=== PATIENT | female | born 1935 | race Two or more races ===

== ENCOUNTER → 2023-01-06 | Outpatient (BNV) | payer OTHER, SELFPAY | PROVIDERS: Visit Provider Internal Medicine Hypertension Specialist | DX: N18.6 End stage renal disease (principal) | CPT/HCPCS: 90961 ==

== ENCOUNTER → 2023-02-05 | Outpatient (BNV) | payer OTHER, SELFPAY | PROVIDERS: Visit Provider Internal Medicine Hypertension Specialist | DX: N18.6 End stage renal disease (principal) | CPT/HCPCS: 90961 ==

== ENCOUNTER → 2023-03-08 | Outpatient (BNV) | payer OTHER, SELFPAY | PROVIDERS: Visit Provider Internal Medicine Hypertension Specialist | DX: N18.6 End stage renal disease (principal) | CPT/HCPCS: 90960 ==

== ENCOUNTER 2023-03-29 06:17 | Outpatient (REF) | payer OTHER, SELFPAY ==
[2023-03-29 06:20] LABS: MANUAL DIFF FLAG NO
[2023-03-29 07:00] LABS: Basophils Percent Auto 0.2 % (0-2); Eosinophils Percent Auto 0.2 % (0-4); Hematocrit 28.1 % (37.0-47.0); Hemoglobin 9.1 g/dl (12.0-16.0); Imm Gran Abs Auto 0.05 X10*3/uL (0.00-0.03); Imm Gran Pct Auto 0.4 % (0.0-0.4); Lymphocytes Percent Auto 8.6 % (20-40); Mean Corpuscular HGB Conc 32.4 g/dl (31.0-35.0); Mean Corpuscular Hemoglobin 26.1 pg (27.0-33.0); Mean Corpuscular Volume 80.7 fL (80.0-98.0); Mean Platelet Volume 10.1 fL (9.4-12.3); Monocytes Absolute Auto 1.1 X10*3/uL (0.1-1.2); Monocytes Percent Auto 9.6 % (2-11); Neutrophils Absolute Auto 9.4 x10*3/uL (2.0-8.3); Platelet Count 235 X10*3/uL (160-400); Red Blood Count 3.48 X10*6/uL (4.20-5.50); Red Cell Distribution Width 18.6 % (11.0-16.0); White Blood Count 11.5 X10*3/uL (4.8-10.8)
[2023-03-29 07:27] LABS: Alanine Aminotransferase 12 U/L (0-31); Albumin Level 2.7 g/dL (3.5-5.0); Alkaline Phosphatase 137 U/L (39-117); Anion Gap 13 (12-20); Aspartate Amino Transferase 25 U/L (5-31); Bilirubin Total 0.9 mg/dL (0.0-1.0); Blood Urea Nitrogen 32 mg/dL (9-16); Calcium 8.9 mg/dL (8.4-10.2); Carbon Dioxide 27 mmol/L (22-29); Chloride 95 mmol/L (96-108); Glucose Random 85 mg/dL (60-115); Potassium 4.4 mmol/L (3.3-5.1); Sodium 131 mmol/L (135-145)
[2023-03-29 08:15] LABS: Estimated Glomerular Filt Rate 9
== END 2023-03-29 06:18 | disposition home or self-care (01) ==
LOC: HO.MMNH2L 06:17
PROVIDERS: Visit Provider Family Medicine
DX: J44.9 Chronic obstructive pulmonary disease, unspecified (principal); N18.6 End stage renal disease; E78.5 Hyperlipidemia, unspecified
CPT/HCPCS: 36415; 80053; 85025

== ENCOUNTER 2023-04-05 06:28 | Outpatient (REF) | payer OTHER, SELFPAY ==
[2023-04-05 06:20] LABS: MANUAL DIFF FLAG NO
[2023-04-05 07:10] LABS: Basophils Absolute Auto 0.1 X10*3/uL (0.0-0.2); Basophils Percent Auto 0.6 % (0-2); Eosinophils Absolute Auto 0.1 X10*3/uL (0.0-0.4); Eosinophils Percent Auto 0.7 % (0-4); Hematocrit 30.2 % (37.0-47.0); Hemoglobin 9.3 g/dl (12.0-16.0); Imm Gran Abs Auto 0.07 X10*3/uL (0.00-0.03); Imm Gran Pct Auto 0.7 % (0.0-0.4); Lymphocytes Absolute Auto 0.9 X10*3/uL (1.2-4.9); Lymphocytes Percent Auto 9.3 % (20-40); Mean Corpuscular HGB Conc 30.8 g/dl (31.0-35.0); Mean Corpuscular Hemoglobin 25.8 pg (27.0-33.0); Mean Corpuscular Volume 83.9 fL (80.0-98.0); Mean Platelet Volume 10.8 fL (9.4-12.3); Monocytes Absolute Auto 0.9 X10*3/uL (0.1-1.2); Monocytes Percent Auto 9.5 % (2-11); NRBC Pct Auto 0.2 /100WBC (0.0-0.2); Neutrophils Absolute Auto 7.5 x10*3/uL (2.0-8.3); Neutrophils Percent Auto 79.2 % (45-73); Platelet Count 233 X10*3/uL (160-400); Red Cell Distribution Width 19.9 % (11.0-16.0); White Blood Count 9.5 X10*3/uL (4.8-10.8)
[2023-04-05 07:30] LABS: Alanine Aminotransferase 10 U/L (0-31); Albumin Level 2.5 g/dL (3.5-5.0); Alkaline Phosphatase 124 U/L (39-117); Anion Gap 16 (12-20); Aspartate Amino Transferase 17 U/L (5-31); Bilirubin Total 0.7 mg/dL (0.0-1.0); Blood Urea Nitrogen 24 mg/dL (9-16); Calcium 8.8 mg/dL (8.4-10.2); Carbon Dioxide 26 mmol/L (22-29); Chloride 95 mmol/L (96-108); Estimated Glomerular Filt Rate 10; Glucose Random 63 mg/dL (60-115); Potassium 4.4 mmol/L (3.3-5.1); Sodium 133 mmol/L (135-145); Total Protein 5.6 g/dL (6.5-8.0)
== END 2023-04-05 06:29 | disposition home or self-care (01) ==
LOC: HO.MMNH2L 06:28
PROVIDERS: Visit Provider Family Medicine
DX: J44.9 Chronic obstructive pulmonary disease, unspecified (principal); N18.6 End stage renal disease; E78.5 Hyperlipidemia, unspecified
CPT/HCPCS: 36415; 80053; 85025

== ENCOUNTER → 2023-04-08 | Outpatient (BNV) | payer OTHER, SELFPAY | PROVIDERS: Visit Provider Internal Medicine Hypertension Specialist | DX: N18.6 End stage renal disease (principal) | CPT/HCPCS: 90960 ==

== ENCOUNTER 2023-04-12 06:34 | Outpatient (REF) | payer OTHER, SELFPAY ==
[2023-04-12 06:07] LABS: MANUAL DIFF FLAG NO
[2023-04-12 06:37] LABS: Basophils Absolute Auto 0.1 X10*3/uL (0.0-0.2); Eosinophils Absolute Auto 0.1 X10*3/uL (0.0-0.4); Eosinophils Percent Auto 1.1 % (0-4); Hematocrit 31.6 % (37.0-47.0); Hemoglobin 9.9 g/dl (12.0-16.0); Imm Gran Abs Auto 0.04 X10*3/uL (0.00-0.03); Imm Gran Pct Auto 0.4 % (0.0-0.4); Lymphocytes Absolute Auto 1.2 X10*3/uL (1.2-4.9); Mean Corpuscular HGB Conc 31.3 g/dl (31.0-35.0); Mean Corpuscular Hemoglobin 26.3 pg (27.0-33.0); Mean Platelet Volume 10.5 fL (9.4-12.3); Monocytes Percent Auto 9.6 % (2-11); Neutrophils Absolute Auto 7.6 x10*3/uL (2.0-8.3); Neutrophils Percent Auto 75.9 % (45-73); Platelet Count 150 X10*3/uL (160-400); Red Blood Count 3.76 X10*6/uL (4.20-5.50); Red Cell Distribution Width 20.8 % (11.0-16.0); White Blood Count 10.1 X10*3/uL (4.8-10.8)
[2023-04-12 07:17] LABS: Alanine Aminotransferase 10 U/L (0-31); Albumin Level 2.6 g/dL (3.5-5.0); Alkaline Phosphatase 118 U/L (39-117); Anion Gap 17 (12-20); Aspartate Amino Transferase 19 U/L (5-31); Bilirubin Total 0.6 mg/dL (0.0-1.0); Blood Urea Nitrogen 24 mg/dL (9-16); Calcium 8.8 mg/dL (8.4-10.2); Carbon Dioxide 23 mmol/L (22-29); Chloride 96 mmol/L (96-108); Estimated Glomerular Filt Rate 10; Glucose Random 73 mg/dL (60-115); Potassium 4.5 mmol/L (3.3-5.1); Sodium 131 mmol/L (135-145); Total Protein 5.6 g/dL (6.5-8.0)
== END 2023-04-12 06:35 | disposition home or self-care (01) ==
LOC: HO.MMNH2L 06:34
PROVIDERS: Visit Provider Family Medicine
DX: J44.9 Chronic obstructive pulmonary disease, unspecified (principal); N18.9 Chronic kidney disease, unspecified; E78.5 Hyperlipidemia, unspecified
CPT/HCPCS: 36415; 80053; 85025

== ENCOUNTER 2023-04-19 06:51 | Outpatient (REF) | payer OTHER, SELFPAY ==
[2023-04-19 06:10] LABS: MANUAL DIFF FLAG NO
[2023-04-19 07:19] LABS: Basophils Absolute Auto 0.1 X10*3/uL (0.0-0.2); Basophils Percent Auto 1.2 % (0-2); Eosinophils Absolute Auto 0.1 X10*3/uL (0.0-0.4); Eosinophils Percent Auto 0.9 % (0-4); Hematocrit 32.9 % (37.0-47.0); Hemoglobin 10.3 g/dl (12.0-16.0); Imm Gran Abs Auto 0.03 X10*3/uL (0.00-0.03); Imm Gran Pct Auto 0.4 % (0.0-0.4); Lymphocytes Absolute Auto 1.2 X10*3/uL (1.2-4.9); Lymphocytes Percent Auto 15.9 % (20-40); Mean Corpuscular HGB Conc 31.3 g/dl (31.0-35.0); Mean Corpuscular Hemoglobin 26.4 pg (27.0-33.0); Mean Corpuscular Volume 84.4 fL (80.0-98.0); Mean Platelet Volume 10.9 fL (9.4-12.3); Monocytes Absolute Auto 0.8 X10*3/uL (0.1-1.2); Monocytes Percent Auto 10.4 % (2-11); NRBC Pct Auto 0.3 /100WBC (0.0-0.2); Neutrophils Absolute Auto 5.4 x10*3/uL (2.0-8.3); Neutrophils Percent Auto 71.2 % (45-73); Platelet Count 193 X10*3/uL (160-400); Red Cell Distribution Width 21.1 % (11.0-16.0); White Blood Count 7.6 X10*3/uL (4.8-10.8)
[2023-04-19 07:43] LABS: Alanine Aminotransferase 8 U/L (0-31); Albumin Level 2.8 g/dL (3.5-5.0); Alkaline Phosphatase 101 U/L (39-117); Anion Gap 17 (12-20); Aspartate Amino Transferase 20 U/L (5-31); Bilirubin Total 0.8 mg/dL (0.0-1.0); Blood Urea Nitrogen 18 mg/dL (9-16); Carbon Dioxide 23 mmol/L (22-29); Chloride 98 mmol/L (96-108); Estimated Glomerular Filt Rate 11; Glucose Random 70 mg/dL (60-115); Potassium 4.6 mmol/L (3.3-5.1); Sodium 133 mmol/L (135-145); Total Protein 5.8 g/dL (6.5-8.0)
== END 2023-04-19 06:52 | disposition home or self-care (01) ==
LOC: HO.MMNH2L 06:51
PROVIDERS: Visit Provider Family Medicine
DX: J44.9 Chronic obstructive pulmonary disease, unspecified (principal); N18.6 End stage renal disease; E78.5 Hyperlipidemia, unspecified
CPT/HCPCS: 36415; 80053; 85025

== ENCOUNTER → 2023-05-07 | Outpatient (BNV) | payer OTHER, SELFPAY | PROVIDERS: Visit Provider Internal Medicine Hypertension Specialist | DX: N18.6 End stage renal disease (principal) | CPT/HCPCS: 90961 ==

== ENCOUNTER 2023-06-02 05:48 | Outpatient (REF) | payer OTHER, SELFPAY ==
[2023-06-02 05:50] LABS: MANUAL DIFF FLAG NO
[2023-06-02 06:20] LABS: Basophils Absolute Auto 0.1 X10*3/uL (0.0-0.2); Eosinophils Absolute Auto 0.1 X10*3/uL (0.0-0.4); Hematocrit 26.8 % (37.0-47.0); Imm Gran Abs Auto 0.04 X10*3/uL (0.00-0.03); Imm Gran Pct Auto 0.4 % (0.0-0.4); Lymphocytes Absolute Auto 1.4 X10*3/uL (1.2-4.9); Lymphocytes Percent Auto 15.2 % (20-40); Mean Corpuscular HGB Conc 33.6 g/dl (31.0-35.0); Mean Corpuscular Hemoglobin 29.5 pg (27.0-33.0); Mean Corpuscular Volume 87.9 fL (80.0-98.0); Mean Platelet Volume 10.8 fL (9.4-12.3); Monocytes Absolute Auto 0.8 X10*3/uL (0.1-1.2); Monocytes Percent Auto 9.2 % (2-11); Neutrophils Absolute Auto 6.7 x10*3/uL (2.0-8.3); Neutrophils Percent Auto 73.2 % (45-73); Platelet Count 214 X10*3/uL (160-400); Red Blood Count 3.05 X10*6/uL (4.20-5.50); Red Cell Distribution Width 20.5 % (11.0-16.0); White Blood Count 9.1 X10*3/uL (4.8-10.8)
[2023-06-02 06:41] LABS: Alanine Aminotransferase 7 U/L (0-31); Albumin Level 2.5 g/dL (3.5-5.0); Alkaline Phosphatase 91 U/L (39-117); Anion Gap 13 (12-20); Aspartate Amino Transferase 18 U/L (5-31); Bilirubin Total 0.7 mg/dL (0.0-1.0); Blood Urea Nitrogen 12 mg/dL (9-16); Calcium 8.3 mg/dL (8.4-10.2); Carbon Dioxide 27 mmol/L (22-29); Chloride 98 mmol/L (96-108); Estimated Glomerular Filt Rate 15; Glucose Random 70 mg/dL (60-115); Potassium 3.2 mmol/L (3.3-5.1); Sodium 135 mmol/L (135-145); Total Protein 5.4 g/dL (6.5-8.0)
== END 2023-06-02 05:49 | disposition home or self-care (01) ==
LOC: HO.MMNH2L 05:48
PROVIDERS: Visit Provider Family Medicine
DX: N18.6 End stage renal disease (principal)
CPT/HCPCS: 36415; 80053; 85025

== ENCOUNTER 2023-06-07 06:51 | Outpatient (REF) | payer OTHER, SELFPAY ==
[2023-06-07 05:57] LABS: MANUAL DIFF FLAG NO
[2023-06-07 06:16] LABS: Basophils Absolute Auto 0.1 X10*3/uL (0.0-0.2); Basophils Percent Auto 0.7 % (0-2); Eosinophils Percent Auto 0.4 % (0-4); Hematocrit 30.1 % (37.0-47.0); Hemoglobin 9.9 g/dl (12.0-16.0); Imm Gran Abs Auto 0.04 X10*3/uL (0.00-0.03); Imm Gran Pct Auto 0.4 % (0.0-0.4); Lymphocytes Percent Auto 22.3 % (20-40); Mean Corpuscular HGB Conc 32.9 g/dl (31.0-35.0); Mean Corpuscular Hemoglobin 28.9 pg (27.0-33.0); Mean Corpuscular Volume 87.8 fL (80.0-98.0); Mean Platelet Volume 12.2 fL (9.4-12.3); Monocytes Absolute Auto 1.1 X10*3/uL (0.1-1.2); Monocytes Percent Auto 11.6 % (2-11); NRBC Pct Auto 0.4 /100WBC (0.0-0.2); Neutrophils Absolute Auto 5.9 x10*3/uL (2.0-8.3); Neutrophils Percent Auto 64.6 % (45-73); Platelet Count 141 X10*3/uL (160-400); Red Blood Count 3.43 X10*6/uL (4.20-5.50); Red Cell Distribution Width 20.8 % (11.0-16.0); White Blood Count 9.1 X10*3/uL (4.8-10.8)
[2023-06-07 06:48] LABS: Alanine Aminotransferase 9 U/L (0-31); Albumin Level 2.5 g/dL (3.5-5.0); Alkaline Phosphatase 88 U/L (39-117); Anion Gap 15 (12-20); Aspartate Amino Transferase 27 U/L (5-31); Bilirubin Total 0.7 mg/dL (0.0-1.0); Blood Urea Nitrogen 21 mg/dL (9-16); Calcium 9.2 mg/dL (8.4-10.2); Carbon Dioxide 27 mmol/L (22-29); Chloride 104 mmol/L (96-108); Glucose Random 95 mg/dL (60-115); Potassium 3.9 mmol/L (3.3-5.1); Sodium 142 mmol/L (135-145); Total Protein 5.7 g/dL (6.5-8.0)
[2023-06-07 07:35] LABS: Estimated Glomerular Filt Rate 8
== END 2023-06-07 06:52 | disposition home or self-care (01) ==
LOC: HO.MMNH2L 06:51
PROVIDERS: Visit Provider Family Medicine
DX: N18.6 End stage renal disease (principal)
CPT/HCPCS: 36415; 80053; 85025

== ENCOUNTER → 2023-06-07 | Outpatient (BNV) | payer OTHER, SELFPAY | PROVIDERS: Visit Provider Internal Medicine Hypertension Specialist | DX: N18.6 End stage renal disease (principal) | CPT/HCPCS: 90961 ==

== ENCOUNTER 2023-06-10 12:10 | Inpatient (IN) | payer OTHER, SELFPAY ==
[2023-06-10] VITALS (8 sets, daily range): BP systolic 90–137; BP diastolic 41–56; PULSE 59–80; RESP 14–19; TEMP 36.4–36.5; O2SAT 93–100; BMI 24.7
--- NOTE | ~2023-06-10 | XR_ITS ---
EXAMINATION: XR CHEST CLINICAL INFORMATION: Weakness COMPARISON: None available. TECHNIQUE: AP upright portable view of the chest was obtained. 12:44 PM FINDINGS: Tubular structure projects over the right side of the hemithorax. There is a pacemaker/AICD pack projected over the left hemithorax. Lung volumes are low. The patient's chin partially obscures the medial upper apices. The right lung is clear. No right pleural effusion. There is increased opacity in the mid and lower left hemithorax which could be due to pleural effusion and/or elevation of the left hemidiaphragm. This obscures the left side of the cardiac silhouette. Calcification of the thoracic arch is indicative of atherosclerotic disease. There is elevation of the humeral heads with respect to the glenoid fossae consistent with chronic rotator cuff disease. Bilateral impingement syndrome of the shoulders is also seen. XR/XR chest 1V IMPRESSION: 1. Low lung volumes. 2. Increased opacity in the mid and lower left hemithorax which could be due to pleural effusion and/or elevation of the left hemidiaphragm.
--- NOTE | 2023-06-10 12:23 | ECG_ITS ---
Test Reason : WEAKNESS Blood Pressure : / mmHG Vent. Rate : 061 BPM Atrial Rate : 070 BPM P-R Int : 000 ms QRS Dur : 166 ms QT Int : 496 ms P-R-T Axes : 000 -55 132 degrees QTc Int : 499 ms Sinus rhythm with complete heart block and Ventricular-paced rhythm with occasional Premature ventricular complexes Abnormal ECG No previous ECGs available Referred By: Kenzie Boyer Electronically Signed By:GABBY MEJIA MD
--- NOTE | 2023-06-10 12:37 | ED_ITS ---
HPI - General Adult General Chief complaint: General Medical Stated complaint: LOW BP 82/42 FROM [facility] PER EMS Time Seen by Provider: 06/10/23 12:17 Source: patient, EMS and old records reviewed Mode of arrival: EMS Limitations: altered mental status (dementia) History of Present Illness HPI narrative: 87 yo female with PMH of ESRD permacath T Th S, anemia of CKD, TIA, PAF on eliquis, NSTEMI, PVD, vascular dementia, HTN, HLD, anxiety, depression, JOSE, just completed cefepime on 06/07 for UTI, GERD here with c/o having low BP at HD today 82/42 it looks like per notes her dry weight is down 1.1kg. The patient has no complaints she appears clinically dry on exam. She is DNR/DNI. EMS BP was 95 systolic. No HD was done today due to hypotension. Family is here and notes she has been at [facility] so they did not see her earlier. MD complaint: hypotension Onset (ago): hour(s) (1) Radiation: non-radiation Severity: mild Relieving factors: none Exacerbating factors: none Associated symptoms: denies other symptoms Treatments prior to arrival: none Related Data Home Medications ?Medication ?Instructions ?Recorded ?Confirmed albuterol sulfate 2.5 mg/3 mL 2.5 mg inhalation Q6H PRN 06/10/23 06/10/23 (0.083 %) solution for nebulization Shortness Of Breath albuterol sulfate 90 mcg/actuation 2 puff inhalation Q4H PRN 06/10/23 06/10/23 aerosol inhaler Shortness Of Breath apixaban 2.5 mg tablet (Eliquis) 2.5 mg PO BID 06/10/23 06/10/23 aspirin 81 mg capsule 81 mg PO DAILY 06/10/23 06/10/23 atorvastatin 40 mg tablet 40 mg PO DAILY 06/10/23 06/10/23 buspirone 5 mg tablet 10 mg PO BID 06/10/23 06/10/23 carvedilol 3.125 mg tablet 3.125 mg PO BID 06/10/23 06/10/23 cholecalciferol (vitamin D3) 25 25 mcg PO DAILY 06/10/23 06/10/23 mcg (1,000 unit) tablet hydralazine 25 mg tablet 25 mg PO BID 06/10/23 06/10/23 melatonin 3 mg tablet 3 mg PO BEDTIME 06/10/23 06/10/23 multivitamin 1 tab PO DAILY 06/10/23 06/10/23 nystatin 100,000 unit/gram topical 1 appl topical DAILY 06/10/23 06/10/23 powder oxybutynin chloride 5 mg tablet 5 mg PO BID 06/10/23 06/10/23 pantoprazole 20 mg tablet,delayed 20 mg PO BID@0630,1630 06/10/23 06/10/23 release polyethylene glycol 3350 17 gram 17 g PO DAILY PRN Constipation 06/10/23 06/10/23 oral powder packet (Miralax) sennosides 8.6 mg tablet (senna) 8.6 mg PO BID PRN Constipation 06/10/23 06/10/23 Allergies Allergy/AdvReac Type Severity Reaction Status Date / Time lisinopril Allergy Unknown Verified 06/10/23 12:23 Review of Systems 2 Review of Systems: ROS unable to be obtained due to dementia [facility] Past Medical History Source: old records reviewed Medical History Hyperlipidemia Anemia in chronic kidney disease NSTEMI (non-ST elevated myocardial infarction) CHF (congestive heart failure) PAF (paroxysmal atrial fibrillation) TIA (transient ischemic attack) Depression JOSE (obstructive sleep apnea) HTN (hypertension) Vascular dementia ESRD (end stage renal disease) Social History Social History Patient Tobacco Use Status: Tobacco use Unknown Smoked in Last 30 Days: No Use of substances other than those prescribed or required for medical reasons: No Advance Directives: No Advance Directives Information Provided: No Physical Exam ED Vital Signs: Vital Signs - 24 hr 06/10/23 12:18 06/10/23 13:05 06/10/23 13:08 Temperature 97.5 F Pulse Rate 63 62 60 Respiratory Rate 14 19 16 Blood Pressure 104/52 L 97/49 L 106/54 L Pulse Oximetry 94 95 93 Oxygen Delivery Method Room Air Room Air Room Air Oxygen Flow Rate 06/10/23 14:05 06/10/23 16:26 Temperature 97.7 F Pulse Rate 64 62 Respiratory Rate 18 16 Blood Pressure 107/41 L 111/49 L Pulse Oximetry 95 100 Oxygen Delivery Method Room Air Nasal Cannula Oxygen Flow Rate 2 BMI result Body Mass Index 24.7 Appearance: Alert. Oriented to self. No acute distress. Eyes: Pupils equal, round and reactive to light. ENT: Pharynx ndry MM Neck: Normal inspection. Neck supple. CVS: Normal heart rate and rhythm. Pulses normal. Chest: permacath site is c/d/i PPM noted Respiratory: No respiratory distress. Breath sounds diminished L base Abdomen: Soft and nontender. Skin: Skin warm and dry. pale skin color. poor skin turgor. Extremities: No lower extremity edema. No calf ttp Neuro: Oriented X 1. diffusely weak but no obvious focal deficits. Course Course Course Narrative: daughter is aware of likely NSTEMI does not want anything beyond medical management no PCI no surgeries. already on eliquis will hold heparin given CKD, anemia and bleeding risks Reevaluation(s) Reevaluation #1: message sent to Dr. Mar from caser up Medications Administered Generic Name Dose Route Start Last Admin Trade Name Freq PRN Reason Stop Dose Admin Sodium Chloride 1,000 mls @ 100 mls/hr 06/10/23 15:45 06/10/23 16:57 Ns IVCONT 06/11/23 11:44 100 mls/hr .Q10H IRIS Administration Discontinued Medications Generic Name Dose Route Start Last Admin Trade Name Freq PRN Reason Stop Dose Admin Sodium Chloride 500 mls @ 500 mls/hr 06/10/23 12:24 06/10/23 14:00 Ns IV 06/10/23 13:23 Infused .Q1H ONE Infusion Albumin Human 100 mls @ 133.333 mls/hr 06/10/23 12:30 06/10/23 16:50 Kedbumin 25 % IV 06/10/23 14:14 Infused Q1H IRIS Infusion Cefepime HCl 1 gm/ Sodium 50 mls @ 100 mls/hr 06/10/23 12:31 06/10/23 14:50 Chloride IV 06/10/23 13:00 Infused ONCE ONE Infusion Calcium Gluconate 2 gm in 100 mls @ 50 mls/hr 06/10/23 13:02 06/10/23 16:51 Calcium Gluconate IV 06/10/23 15:01 50 mls/hr ONCE ONE Administration Procedures Procedure Narrative Procedure Narrative: bedside limited cardiac echo - subxiphoid, apical and parasternal views small effusion but no tamponade physiology noted, overall poor squeeze noted on exam Medical Decision Making Medical Decision Making MDM Narrative: 87 yo female with PMH of ESRD permacath T Th S, anemia of CKD, TIA, PAF on eliquis, NSTEMI, PVD, vascular dementia, HTN, HLD, anxiety, depression, JOSE, just completed cefepime on 06/07 for UTI, GERD here with low BPs at HD and decrease in dry weight at this time clinically she looks dry will start on gentle fluids and albumin given concern for volume overload - will start on 500cc bolus, albumin dose - labs and empiric cefepime x 1 dose until we can get further history and workup. Will obtain bedside ECHO for pericardial effusion. She is DNR/DNI. Looks as if she has PPM as well I did not see that in the records. Differential Diagnosis Differential Diagnoses: The differential diagnosis associated with the presentation includes UTI, pneumonia, dehydration, anemia Admission/Observation Consideration of admission/observation: Escalation of care including admission/observation considered Consult Healthcare Provider Management of the patient was discussed with: Hospitalist (will admit) and [employer] (nephrology ) Lab Data MDM Lab Attestation statement: I reviewed the patient's lab results. trop is elevated patient denies pain EKG no STEMI no priors 06/10/23 12:53 06/10/23 12:38 Labs: Lab Results 06/10/23 06/10/23 06/10/23 Range/Units 12:38 12:53 13:09 WBC 12.1 H (4.8-10.8) X10*3/uL RBC 4.01 L (4.20-5.50) X10*6/uL Hgb 11.4 L (12.0-16.0) g/dl Hct 35.9 L (37.0-47.0) % MCV 89.5 (80.0-98.0) fL MCH 28.4 (27.0-33.0) pg MCHC 31.8 (31.0-35.0) g/dl RDW 20.9 H (11.0-16.0) % Plt Count 163 (160-400) X10*3/uL MPV 11.6 (9.4-12.3) fL Immature Gran % (Auto) 0.5 H (0.0-0.4) % Neut % (Auto) 81.0 H (45-73) % Lymph % (Auto) 10.2 L (20-40) % [place] % (Auto) 7.3 (2-11) % Eos % (Auto) 0.6 (0-4) % Baso % (Auto) 0.4 (0-2) % Lymph # (Auto) 1.2 (1.2-4.9) X10*3/uL [place] # (Auto) 0.9 (0.1-1.2) X10*3/uL Eos # (Auto) 0.1 (0.0-0.4) X10*3/uL Baso # (Auto) 0.1 (0.0-0.2) X10*3/uL Abs Immat Gran (auto) 0.06 H (0.00-0.03) X10*3/uL Absolute Neuts (auto) 9.8 H (2.0-8.3) x10*3/uL Absolute Nucleated RBC 0.160 H (0.0-0.012) X10*3/uL Nucleated RBC % (auto) 1.3 H (0.0-0.2) /100WBC PT 15.0 H (11.1-13.3) SEC INR 1.2 H (0.9-1.1) Sodium 137 (135-145) mmol/L Potassium 4.4 (3.3-5.1) mmol/L Chloride 98 (96-108) mmol/L Carbon Dioxide 28 (22-29) mmol/L Anion Gap 15 (12-20) BUN 29 H (9-16) mg/dL Creatinine 5.83 H* (0.5-1.4) mg/dL Estim Creat Clear Calc 5.4 Estimated GFR 7 Random Glucose 100 (60-115) mg/dL Lactic Acid 2.9 H* (0.5-2.0) mmol/L Lactic Acid F/U @ 2Hr (0.5-2.0) mmol/L Calcium 10.2 D (8.4-10.2) mg/dL Magnesium 2.0 (1.6-2.6) mg/dL Total Bilirubin 0.9 (0.0-1.0) mg/dL Direct Bilirubin 0.4 (0.0-0.5) mg/dL AST 36 H (5-31) U/L ALT 15 (0-31) U/L Alkaline Phosphatase 104 (39-117) U/L Troponin I High Sens 958.4 H* (<3.5-17.0) ng/L B-Natriuretic Peptide 1786 H (<100) pg/mL Total Protein 7.0 (6.5-8.0) g/dL Albumin 2.9 L (3.5-5.0) g/dL Lipase 17 (8-78) U/L Procalcitonin 0.69 ng/mL Influenza Type A (PCR) NEGATIVE (Negative) Influenza Type B (PCR) NEGATIVE (Negative) RSV RNA Qual (PCR) NEGATIVE (Negative) SARS-CoV-2 RNA (RT-PCR) NEGATIVE (Negative) Blood Type A Positive Antibody Screen POSITIVE Antibody Identification Anti-E VELIA, Polyspecific NEGATIVE Positive VELIA Work-up TNP 06/10/23 Range/Units 15:16 WBC (4.8-10.8) X10*3/uL RBC (4.20-5.50) X10*6/uL Hgb (12.0-16.0) g/dl Hct (37.0-47.0) % MCV (80.0-98.0) fL MCH (27.0-33.0) pg MCHC (31.0-35.0) g/dl RDW (11.0-16.0) % Plt Count (160-400) X10*3/uL MPV (9.4-12.3) fL Immature Gran % (Auto) (0.0-0.4) % Neut % (Auto) (45-73) % Lymph % (Auto) (20-40) % [place] % (Auto) (2-11) % Eos % (Auto) (0-4) % Baso % (Auto) (0-2) % Lymph # (Auto) (1.2-4.9) X10*3/uL [place] # (Auto) (0.1-1.2) X10*3/uL Eos # (Auto) (0.0-0.4) X10*3/uL Baso # (Auto) (0.0-0.2) X10*3/uL Abs Immat Gran (auto) (0.00-0.03) X10*3/uL Absolute Neuts (auto) (2.0-8.3) x10*3/uL Absolute Nucleated RBC (0.0-0.012) X10*3/uL Nucleated RBC % (auto) (0.0-0.2) /100WBC PT (11.1-13.3) SEC INR (0.9-1.1) Sodium (135-145) mmol/L Potassium (3.3-5.1) mmol/L Chloride (96-108) mmol/L Carbon Dioxide (22-29) mmol/L Anion Gap (12-20) BUN (9-16) mg/dL Creatinine (0.5-1.4) mg/dL Estim Creat Clear Calc Estimated GFR Random Glucose (60-115) mg/dL Lactic Acid (0.5-2.0) mmol/L Lactic Acid F/U @ 2Hr 3.1 H* (0.5-2.0) mmol/L Calcium (8.4-10.2) mg/dL Magnesium (1.6-2.6) mg/dL Total Bilirubin (0.0-1.0) mg/dL Direct Bilirubin (0.0-0.5) mg/dL AST (5-31) U/L ALT (0-31) U/L Alkaline Phosphatase (39-117) U/L Troponin I High Sens 768.4 H* (<3.5-17.0) ng/L B-Natriuretic Peptide (<100) pg/mL Total Protein (6.5-8.0) g/dL Albumin (3.5-5.0) g/dL Lipase (8-78) U/L Procalcitonin ng/mL Influenza Type A (PCR) (Negative) Influenza Type B (PCR) (Negative) RSV RNA Qual (PCR) (Negative) SARS-CoV-2 RNA (RT-PCR) (Negative) Blood Type Antibody Screen Antibody Identification VELIA, Polyspecific Positive VELIA Work-up Independent Interpretation I performed an independent interpretation of an: EKG, Plain X-Ray and Ultrasound Interpretation: Rate: 60 Rhythm: paced with PVCs [place]: left wide QRS complex ST T wave : no ALENA, inverted t waves in I aVL V2 qTC: 499 prior studies: none available The study has been interpreted contemporaneously by me. . Radiology Impression Discussion of test interpretation with radiology: I have reviewed the radiologist's reading. Independent Historian Clinical information obtained from an independent historian. History obtained from or confirmed by: EMS and Other External Record Review External record reviewed: Outpatient record Critical Care Time Critical Care Time Critical Care Time: Yes Total Critical Care Time: 60 Attestation: family discussion, review of records, medical consult, admission. I attest to this time spent taking care of the patient Discharge Plan Discharge Clinical Impression: Acute hypotension, Non-ST elevation [place] (NSTEMI) Elevated WBC count Qualifiers: Leukocytosis type: unspecified Qualified Code(s): D72.829 - Elevated white blood cell count, unspecified Patient Disposition: Admitted As Inpatient Sepsis Bolus Exclusion Sepsis Bolus Exclusion CHF/Renal Failure This patient met severe sepsis criteria due to the following condition(s):: H ypotension In my clinical judgement the administration of 30 ml/kg of crystalloid would be detrimental to this patient due to the patient's following conditions:: Stage III or IV Chronic Kidney Disease (GFR<30) and Concern for fluid overload Replace the 30 mls/kg with (Zero amount not acceptable and all fluids for severe sepsis must be given at GREATER than 125 mls/hr) Crystalloids amount given in mls: (rate must be at least 150cc/hr): 500 Colloids amount given in mls:: 200
[2023-06-10] MEDS: 0.9 % Sodium Chloride 500 ML IV (12:59)
[2023-06-10 13:00] LABS: MANUAL DIFF FLAG NO
[2023-06-10 13:01] LABS: Basophils Absolute Auto 0.1 X10*3/uL (0.0-0.2); Basophils Percent Auto 0.4 % (0-2); Eosinophils Absolute Auto 0.1 X10*3/uL (0.0-0.4); Eosinophils Percent Auto 0.6 % (0-4); Hematocrit 35.9 % (37.0-47.0); Hemoglobin 11.4 g/dl (12.0-16.0); Imm Gran Abs Auto 0.06 X10*3/uL (0.00-0.03); Imm Gran Pct Auto 0.5 % (0.0-0.4); Lymphocytes Absolute Auto 1.2 X10*3/uL (1.2-4.9); Lymphocytes Percent Auto 10.2 % (20-40); Mean Corpuscular HGB Conc 31.8 g/dl (31.0-35.0); Mean Corpuscular Hemoglobin 28.4 pg (27.0-33.0); Mean Corpuscular Volume 89.5 fL (80.0-98.0); Mean Platelet Volume 11.6 fL (9.4-12.3); Monocytes Absolute Auto 0.9 X10*3/uL (0.1-1.2); Monocytes Percent Auto 7.3 % (2-11); Neutrophils Absolute Auto 9.8 x10*3/uL (2.0-8.3); Platelet Count 163 X10*3/uL (160-400); Red Blood Count 4.01 X10*6/uL (4.20-5.50); Red Cell Distribution Width 20.9 % (11.0-16.0); White Blood Count 12.1 X10*3/uL (4.8-10.8)
[2023-06-10 13:02] LABS: NRBC Pct Auto 1.3 /100WBC (0.0-0.2)
[2023-06-10 13:08] LABS: INTERNATIONAL NORM RATIO 1.2 (0.9-1.1)
[2023-06-10 13:09] LABS: Troponin-I High Sensitivity 958.4 ng/L (<3.5-17.0)
[2023-06-10 13:10] LABS: Alanine Aminotransferase 15 U/L (0-31); Albumin Level 2.9 g/dL (3.5-5.0); Alkaline Phosphatase 104 U/L (39-117); Anion Gap 15 (12-20); Aspartate Amino Transferase 36 U/L (5-31); Bilirubin Direct 0.4 mg/dL (0.0-0.5); Bilirubin Total 0.9 mg/dL (0.0-1.0); Blood Urea Nitrogen 29 mg/dL (9-16); Calcium 10.2 mg/dL (8.4-10.2); Carbon Dioxide 28 mmol/L (22-29); Chloride 98 mmol/L (96-108); Creatinine Clr Calc Pharmacy 5.4; Estimated Glomerular Filt Rate 7; Glucose Random 100 mg/dL (60-115); Lipase 17 U/L (8-78); Potassium 4.4 mmol/L (3.3-5.1); Sodium 137 mmol/L (135-145)
[2023-06-10 13:21] LABS: Procalcitonin 0.69 ng/mL
[2023-06-10 13:28] LABS: Lactic Acid 2.9 mmol/L (0.5-2.0)
[2023-06-10 13:48] LABS: Influenza A PCR NEGATIVE (Negative); Influenza B PCR NEGATIVE (Negative); Resp Syncy Virus RNA Qual PCR NEGATIVE (Negative); SARS COV2 PCR INHOUSE NEGATIVE (Negative)
[2023-06-10] MEDS: cefEPime HCl 1 GM in 0.9 % Sodium Chloride 50 ML IV (14:14)
[2023-06-10 14:21] LABS: B Type Natriuretic Peptide 1786 pg/mL (<100)
[2023-06-10] MEDS: Albumin Human 25 % 100 ML 133.33 ML IV ×2 (14:47→15:58)
[2023-06-10 14:58] LABS: Reflex Lactate? Lactic Acid Added
[2023-06-10 15:38] LABS: ~Lactic Acid-LAB USE ONLY 3.1 mmol/L (0.5-2.0)
[2023-06-10 15:48] LABS: Troponin-I High Sensitivity 768.4 ng/L (<3.5-17.0)
--- NOTE | 2023-06-10 16:46 | PHA.MEDREC ---
Pharmacy Consult ? Medication Reconciliation Pharmacy has completed the medication reconciliation. Patient from [facility] with med list. Per RN, cefepime is administer at diaylsis center. Per diaylsis paper work cefepime stopped on 06/08/23, dose was 2g on tuth and 3g on Sa. Lucy Yoo, MaximusD
[2023-06-10] MEDS: Calcium Gluconate/NaCl,Iso-Osm 2 GM/100 ML PLAST..BAG IV (16:51)
--- NOTE | 2023-06-10 16:52 | P.HPHOSP_ITS ---
History of Present Illness Date of Service: 06/10/23 Chief Complaint: Hypotensive event An 87 years old lady with PMH of 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 The patient denies any complaints, chest pain, palpitations, SOB, nausea, vomiting, diarrhea or urinary symptoms. In ED she was found to have elevated lactic acid and Troponin with no changes on EKG to suggest ACS. Admitted for close monitoring. Review of Systems 2 Review of Systems: Yes all other systems are reviewed and are negative PENDING SALE TO [facility] Medical History Hyperlipidemia Anemia in chronic kidney disease NSTEMI (non-ST elevated myocardial infarction) CHF (congestive heart failure) PAF (paroxysmal atrial fibrillation) TIA (transient ischemic attack) Depression JOSE (obstructive sleep apnea) HTN (hypertension) Vascular dementia ESRD (end stage renal disease) Social History Patient Tobacco Use Status: Tobacco use Unknown Smoked in Last 30 Days: No Use of substances other than those prescribed or required for medical reasons: No Advance Directives: No Advance Directives Information Provided: No Meds Allergies Allergy/AdvReac Type Severity Reaction Status Date / Time lisinopril Allergy Unknown Verified 06/10/23 12:23 Active Medications: Current Medications Sodium Chloride (Ns) 1,000 mls @ 100 mls/hr IVCONT .Q10H IRIS Stop: 06/11/23 11:44 Home Medications ?Medication ?Instructions ?Recorded ?Confirmed ?Last Taken ?Type albuterol sulfate 2.5 mg/3 mL 2.5 mg inhalation Q6H PRN 06/10/23 06/10/23 Unknown History (0.083 %) solution for nebulization Shortness Of Breath albuterol sulfate 90 mcg/actuation 2 puff inhalation Q4H PRN 06/10/23 06/10/23 Unknown History aerosol inhaler Shortness Of Breath apixaban 2.5 mg tablet (Eliquis) 2.5 mg PO BID 06/10/23 06/10/23 Unknown History aspirin 81 mg capsule 81 mg PO DAILY 06/10/23 06/10/23 Unknown History atorvastatin 40 mg tablet 40 mg PO DAILY 06/10/23 06/10/23 Unknown History buspirone 5 mg tablet 10 mg PO BID 06/10/23 06/10/23 Unknown History carvedilol 3.125 mg tablet 3.125 mg PO BID 06/10/23 06/10/23 Unknown History cefepime 1 gram solution for 1 g IM TUTHSA@0900 06/10/23 Unknown History injection cholecalciferol (vitamin D3) 25 25 mcg PO DAILY 06/10/23 06/10/23 Unknown History mcg (1,000 unit) tablet hydralazine 25 mg tablet 25 mg PO BID 06/10/23 06/10/23 Unknown History melatonin 3 mg tablet 3 mg PO BEDTIME 06/10/23 06/10/23 Unknown History multivitamin 1 tab PO DAILY 06/10/23 06/10/23 Unknown History nystatin 100,000 unit/gram topical 1 appl topical DAILY 06/10/23 06/10/23 Unknown History powder oxybutynin chloride 5 mg tablet 5 mg PO BID 06/10/23 06/10/23 Unknown History pantoprazole 20 mg tablet,delayed 20 mg PO BID@0630,1630 06/10/23 06/10/23 Unknown History release polyethylene glycol 3350 17 gram 17 g PO DAILY PRN Constipation 06/10/23 06/10/23 Unknown History oral powder packet (Miralax) sennosides 8.6 mg tablet (senna) 8.6 mg PO BID PRN Constipation 06/10/23 06/10/23 Unknown History Physical Exam 2 Vital Signs and Narrative: Vital Signs: Last Vital Signs Temp 97.7 F 06/10/23 16:26 Pulse 62 06/10/23 16:26 Resp 16 06/10/23 16:26 BP 111/49 L 06/10/23 16:26 Pulse Ox 100 06/10/23 16:26 O2 Del Method Nasal Cannula 06/10/23 16:26 O2 Flow Rate 2 06/10/23 16:26 BMI result Body Mass Index 24.7 Const: Other: Constitutional : Awake, interactive, not in distress Neck : Normal inspection, Supple Cardiovascular : RRR, no JVP, no lower extremity edema Respiratory : good bilateral air entry, no crackles, wheezes or rhonchi Gastrointestinal: soft, lax, Normal bowel sounds, Non tender Skin : Warm, Dry, permacath in place and clean Neurological : Alert & oriented to self , No focal deficit Results Labs 06/10/23 12:53 06/10/23 12:38 Labs: Laboratory Results - last 24 hr 06/10/23 06/10/23 06/10/23 12:38 12:53 13:09 MCV 89.5 MCH 28.4 MCHC 31.8 RDW 20.9 H Plt Count 163 MPV 11.6 Immature Gran % (Auto) 0.5 H Neut % (Auto) 81.0 H Lymph % (Auto) 10.2 L [place] % (Auto) 7.3 Eos % (Auto) 0.6 Baso % (Auto) 0.4 Lymph # (Auto) 1.2 [place] # (Auto) 0.9 Eos # (Auto) 0.1 Baso # (Auto) 0.1 Abs Immat Gran (auto) 0.06 H Absolute Neuts (auto) 9.8 H Absolute Nucleated RBC 0.160 H Nucleated RBC % (auto) 1.3 H PT 15.0 H INR 1.2 H Anion Gap 15 Estim Creat Clear Calc 5.4 Estimated GFR 7 Random Glucose 100 Lactic Acid 2.9 H* Lactic Acid F/U @ 2Hr Calcium 10.2 D Magnesium 2.0 Total Bilirubin 0.9 Direct Bilirubin 0.4 AST 36 H ALT 15 Alkaline Phosphatase 104 Troponin I High Sens 958.4 H* B-Natriuretic Peptide 1786 H Total Protein 7.0 Albumin 2.9 L Lipase 17 Procalcitonin 0.69 Influenza Type A (PCR) NEGATIVE Influenza Type B (PCR) NEGATIVE RSV RNA Qual (PCR) NEGATIVE SARS-CoV-2 RNA (RT-PCR) NEGATIVE Blood Type A Positive Antibody Screen POSITIVE Antibody Identification Anti-E VELIA, Polyspecific NEGATIVE Positive VELIA Work-up TNP 06/10/23 15:16 MCV MCH MCHC RDW Plt Count MPV Immature Gran % (Auto) Neut % (Auto) Lymph % (Auto) [place] % (Auto) Eos % (Auto) Baso % (Auto) Lymph # (Auto) [place] # (Auto) Eos # (Auto) Baso # (Auto) Abs Immat Gran (auto) Absolute Neuts (auto) Absolute Nucleated RBC Nucleated RBC % (auto) PT INR Anion Gap Estim Creat Clear Calc Estimated GFR Random Glucose Lactic Acid Lactic Acid F/U @ 2Hr 3.1 H* Calcium Magnesium Total Bilirubin Direct Bilirubin AST ALT Alkaline Phosphatase Troponin I High Sens 768.4 H* B-Natriuretic Peptide Total Protein Albumin Lipase Procalcitonin Influenza Type A (PCR) Influenza Type B (PCR) RSV RNA Qual (PCR) SARS-CoV-2 RNA (RT-PCR) Blood Type Antibody Screen Antibody Identification VELIA, Polyspecific Positive VELIA Work-up Imaging Radiologist's Impressions: Impressions Chest X-Ray 06/10/23 12:40 IMPRESSION: 1. Low lung volumes. 2. Increased opacity in the mid and lower left hemithorax which could be due to pleural effusion and/or elevation of the left hemidiaphragm. Assessment and Plan (1) Elevated WBC count: Qualifiers: Leukocytosis type: unspecified Qualified Code(s): D72.829 - Elevated white blood cell count, unspecified Status: Acute (2) Acute hypotension: Status: Acute (3) Elevated troponin: Status: Acute Plan An 87 years old lady with PMH of 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 Hypotension secondary to dialysis removal of fluids give IVF Hold BP meds Lactic acidosis Due to hypotension not sepsis IVF and follow Elevated Trop I trended down No EKG changes to suggest ACS Continue ASA, Statin and BB Leukocytosis No clear source of infection, reactive ? follow CBC Hold on Abx as no clear source of Infx identified ESRD on dialysis Nephrology to follow Hx PAF Continue Eliquis and Carvedilol DVT PPx Eliquis The patient will likely need 2 overnight hospital stay for close monitoring of BP, evaluated high Trop I pending nephrology consultation Quality Stroke Does the patient have a stroke diagnosis?: No VTE Prior VTE?: No VTE Risk Level:: Medical - moderate - high VTE Device Contraindication: Treatment Not Indicated VTE Drug Contraindication: N/A - Med Ordered
[2023-06-10] MEDS: 0.9 % Sodium Chloride 1,000 ML 100 ML IVCONT (16:57)
[2023-06-10 17:20] LABS: Reflex Lactate? 2 Y
[2023-06-10 18:19] LABS: ~Lactic Acid-LAB USE ONLY 1.2 mmol/L (0.5-2.0)
--- NOTE | 2023-06-10 19:05 | PC.NURSE ---
this rn assumed care of pt @ 1500. pt family switching out at bedside. delay in med administration due catching up on previously late meds from previous shift and limited IV access
[2023-06-10] MEDS: Apixaban 2.5 MG TABLET PO (21:16)
[2023-06-10] MEDS: busPIRone HCl 10 MG TABLET PO (21:16)
[2023-06-10] MEDS: Melatonin 3 MG TABLET PO (21:16)
[2023-06-10] MEDS: oxyBUTYnin chloride 5 MG TABLET PO (21:17)
[2023-06-11] VITALS (7 sets, daily range): BP systolic 97–144; BP diastolic 50–62; PULSE 60–66; RESP 12–20; TEMP 36–36.3; O2SAT 96–100; BMI 24.5
[2023-06-11] MEDS: 0.9 % Sodium Chloride 1,000 ML 100 ML IVCONT (00:56)
[2023-06-11 05:20] LABS: MANUAL DIFF FLAG NO
[2023-06-11 05:38] LABS: Basophils Absolute Auto 0.1 X10*3/uL (0.0-0.2); Basophils Percent Auto 0.6 % (0-2); Eosinophils Absolute Auto 0.2 X10*3/uL (0.0-0.4); Eosinophils Percent Auto 1.8 % (0-4); Hematocrit 27.2 % (37.0-47.0); Hemoglobin 8.8 g/dl (12.0-16.0); Imm Gran Abs Auto 0.04 X10*3/uL (0.00-0.03); Imm Gran Pct Auto 0.4 % (0.0-0.4); Lymphocytes Absolute Auto 1.2 X10*3/uL (1.2-4.9); Mean Corpuscular HGB Conc 32.4 g/dl (31.0-35.0); Mean Corpuscular Hemoglobin 28.5 pg (27.0-33.0); Mean Platelet Volume 11.8 fL (9.4-12.3); Monocytes Absolute Auto 0.8 X10*3/uL (0.1-1.2); Monocytes Percent Auto 8.8 % (2-11); NRBC Pct Auto 0.5 /100WBC (0.0-0.2); Neutrophils Percent Auto 75.4 % (45-73); Platelet Count 135 X10*3/uL (160-400); Red Blood Count 3.09 X10*6/uL (4.20-5.50); Red Cell Distribution Width 20.1 % (11.0-16.0); White Blood Count 9.3 X10*3/uL (4.8-10.8)
[2023-06-11 05:50] LABS: Anion Gap 15 (12-20); Blood Urea Nitrogen 30 mg/dL (9-16); Calcium 9.8 mg/dL (8.4-10.2); Carbon Dioxide 25 mmol/L (22-29); Chloride 103 mmol/L (96-108); Creatinine Clr Calc Pharmacy 5.4; Estimated Glomerular Filt Rate 7; Glucose Random 79 mg/dL (60-115); Potassium 3.7 mmol/L (3.3-5.1); Sodium 139 mmol/L (135-145)
[2023-06-11] MEDS: Omeprazole 20 MG CAPSULE.DR PO (06:06)
--- NOTE | 2023-06-11 07:32 | PC.NURSE ---
Resumed care of patient, this RN 1:1 fed the patient, however pt did not want to eat or drink much of breakfast. Pt offers no complaints/needs at this time. Awaiting bed assignment, call zhou within reach.
[2023-06-11] MEDS: Apixaban 2.5 MG TABLET PO ×2 (08:28→21:58)
[2023-06-11] MEDS: Atorvastatin Calcium 40 MG TABLET PO (08:28)
[2023-06-11] MEDS: Aspirin Enteric Coated 81 MG TABLET.DR PO (08:28)
[2023-06-11] MEDS: Multivitamin TABLET 1 TAB PO (08:28)
[2023-06-11] MEDS: Cholecalciferol (Vitamin D3) 25 MCG TABLET PO (08:28)
[2023-06-11] MEDS: carvediloL 3.125 MG TABLET PO ×2 (08:29→21:57)
--- NOTE | 2023-06-11 09:03 | MHC.CM.PN ---
Patient has Dementia; CM spoke with Daughter/HCP/[place] @ [phone] and addressed IMM with her(original will be mailed certified letter to the Daughter and a copy will be placed on the chart). Patient comes to [facility] from [facility], also where she receives her HD. Returning to [facility] is the goal and CM has initiated and will follow for dc planning. Patient typically lives in a house with her Daughter/[place] and she used a walker to assist with mobility. 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 CM will follow.JAMESON has asked Duglas Higginbotham to fax a copy of the HCP.
--- NOTE | 2023-06-11 11:09 | PC.NURSE ---
This Rn went into pt room, pt daughter at bedside, reporting all morning medications given were spit out, This RN attempted to crush and give medications in pudding but patient refused pudding, along with morning breakfast tray.
--- NOTE | 2023-06-11 11:57 | P.CONCA_ITS ---
History of Present Illness History of Present Illness Date of Service: 06/11/23 Requesting physician: Marta Neil Consult reason: troponin elevation Chief complaint: Hypotension, elevated Trop I Narrative: I was consulted to see carbonate in cardiology consultation today for elevated troponins. Patient is not able to provide any history due to cognitive dysfunction. The daughter was present at bedside. Patient with prior history of cardiac issues with pacemaker placement, N/C renal disease on dialysis, dementia was brought from the dialysis unit due to syncope and hypotension. Patient pretty prolonged hypotension when she came in noted to have elevated troponins as well as lactic acidosis. After treatment of hypertension lactic acidosis clear. Troponins are downtrending. Patient not reporting any chest pain although this is difficult to say. Patient has underlying ventricularly paced rhythm and therefore EKG is nondiagnostic for ischemia she is on multiple antihypertensives at home. She has prior history of heart failure with reduced ejection fraction with LVEF 20-25% with Bi V ICD placement. She is also history of paroxysmal atrial fibrillation. She is also history of chronic anemia and possible GI bleed. No other history is obtainable from the patient. On presentation she had leukocytosis and her hematocrit was 11.4 could be from hemoconcentration from dehydration. This morning hemoglobin is 8.8 which is significantly dropped and leukocytosis has improved. Review of Systems 2 Review of Systems: Yes Unobtainable due to mental status Neurologic: Reports confusion Psychiatric: Psychiatric: Reports confusion [facility] Past Medical History Medical History Hyperlipidemia Anemia in chronic kidney disease NSTEMI (non-ST elevated myocardial infarction) CHF (congestive heart failure) PAF (paroxysmal atrial fibrillation) TIA (transient ischemic attack) Depression JOSE (obstructive sleep apnea) HTN (hypertension) Vascular dementia ESRD (end stage renal disease) Social History Social History Patient Tobacco Use Status: Tobacco use Unknown Smoked in Last 30 Days: No Use of substances other than those prescribed or required for medical reasons: No Advance Directives: No Advance Directives Information Provided: No Nutrition Risks: No Nutritional Risk service: No Meds Allergies Allergy/AdvReac Type Severity Reaction Status Date / Time lisinopril Allergy Unknown Verified 06/10/23 12:23 Active Medications: Current Medications Acetaminophen (Acetaminophen 325 Mg Tablet) 650 mg PO Q6H PRN PRN Reason: Pain, Mild (Pain Scale 1-3) Albuterol Sulfate (Albuterol Sulfate (0.083%) 2.5 Mg/3 Ml Vial.Smith) 2.5 mg INHALE Q6H PRN PRN Reason: Shortness Of Breath Albuterol Sulfate (Albuterol Sulfate 90 Mcg 8 Gm Inhaler) 2 puff INHALE Q4H PRN PRN Reason: Shortness Of Breath Apixaban (Apixaban 2.5 Mg Tablet) 2.5 mg PO BID [facility] Last Admin: 06/11/23 08:28 Dose: 2.5 mg Aspirin (Aspirin Enteric Coated 81 Mg Tablet.) 81 mg PO DAILY [facility] Last Admin: 06/11/23 08:28 Dose: 81 mg Atorvastatin Calcium (Atorvastatin Calcium 40 Mg Tablet) 40 mg PO DAILY [facility] Last Admin: 06/11/23 08:28 Dose: 40 mg Buspirone HCl (Buspirone Hcl 10 Mg Tablet) 10 mg PO BID [facility] Last Admin: 06/11/23 11:09 Dose: Not Given Carvedilol (Carvedilol 3.125 Mg Tablet) 3.125 mg PO BID [facility]; Protocol Last Admin: 06/11/23 08:29 Dose: 3.125 mg Melatonin (Melatonin 3 Mg Tablet) 3 mg PO BEDTIME [facility] Last Admin: 06/10/23 21:16 Dose: 3 mg Multivitamins/Vitamin C (Multivitamin Tablet) 1 tab PO DAILY [facility] Last Admin: 06/11/23 08:28 Dose: 1 tab Omeprazole (Omeprazole 20 Mg Capsule.) 20 mg PO BID@0630,1630 [facility] Last Admin: 06/11/23 06:06 Dose: 20 mg Ondansetron HCl (Ondansetron Hcl 4 Mg/2 Ml Vial) 4 mg IVPUSH Q8H PRN PRN Reason: Nausea and Vomiting Oxybutynin Chloride (Oxybutynin Chloride 5 Mg Tablet) 5 mg PO BID [facility] Last Admin: 06/11/23 11:09 Dose: Not Given Polyethylene Glycol (Polyethylene Glycol 3350 17 Gm Powd.Pack) 17 gm PO DAILY PRN PRN Reason: Constipation Senna (Sennosides 8.6 Mg Tablet) 8.6 mg PO BID PRN PRN Reason: Constipation Sodium Chloride (0.9 % Sodium Chloride Flush 3 Ml Syringe) 3 ml IVFLUSH QSHIFT [facility] Last Admin: 06/11/23 08:28 Dose: Not Given Vitamin D (Cholecalciferol (Vitamin D3) 25 Mcg Tablet) 25 mcg PO DAILY [facility] Last Admin: 06/11/23 08:28 Dose: 25 mcg Home Medications ?Medication ?Instructions ?Recorded ?Confirmed ?Last Taken ?Type albuterol sulfate 2.5 mg/3 mL 2.5 mg inhalation Q6H PRN 06/10/23 06/10/23 Unknown History (0.083 %) solution for nebulization Shortness Of Breath albuterol sulfate 90 mcg/actuation 2 puff inhalation Q4H PRN 06/10/23 06/10/23 Unknown History aerosol inhaler Shortness Of Breath apixaban 2.5 mg tablet (Eliquis) 2.5 mg PO BID 06/10/23 06/10/23 Unknown History aspirin 81 mg capsule 81 mg PO DAILY 06/10/23 06/10/23 Unknown History atorvastatin 40 mg tablet 40 mg PO DAILY 06/10/23 06/10/23 Unknown History buspirone 5 mg tablet 10 mg PO BID 06/10/23 06/10/23 Unknown History carvedilol 3.125 mg tablet 3.125 mg PO BID 06/10/23 06/10/23 Unknown History cholecalciferol (vitamin D3) 25 25 mcg PO DAILY 06/10/23 06/10/23 Unknown History mcg (1,000 unit) tablet hydralazine 25 mg tablet 25 mg PO BID 06/10/23 06/10/23 Unknown History melatonin 3 mg tablet 3 mg PO BEDTIME 06/10/23 06/10/23 Unknown History multivitamin 1 tab PO DAILY 06/10/23 06/10/23 Unknown History nystatin 100,000 unit/gram topical 1 appl topical DAILY 06/10/23 06/10/23 Unknown History powder oxybutynin chloride 5 mg tablet 5 mg PO BID 06/10/23 06/10/23 Unknown History pantoprazole 20 mg tablet,delayed 20 mg PO BID@0630,1630 06/10/23 06/10/23 Unknown History release polyethylene glycol 3350 17 gram 17 g PO DAILY PRN Constipation 06/10/23 06/10/23 Unknown History oral powder packet (Miralax) sennosides 8.6 mg tablet (senna) 8.6 mg PO BID PRN Constipation 06/10/23 06/10/23 Unknown History Physical Exam 2 Vital Signs: Vital Signs: Last Vital Signs Temp 97.7 F 06/10/23 19:35 Pulse 60 06/11/23 08:30 Resp 20 06/11/23 08:30 BP 142/62 H 06/11/23 08:30 Pulse Ox 98 06/11/23 08:30 O2 Del Method Room Air 06/11/23 08:30 O2 Flow Rate 2 06/10/23 21:20 BMI result Body Mass Index 24.7 Const: General: cooperative, comfortable, no acute distress, alert, awake, confusion and poor hygiene Nutritional Appearance: average body habitus O rientation/consciousness: confusion HEENT: Head: Yes normocephalic and Yes atraumatic Neck: Neck: Yes trachea midline, Yes supple and Yes no JVD Resp: Effort & Inspection: decreased respiratory effort Auscultation: d iminished lung sounds Cardio: Jugular venous distension: no JVD Rate: regular rate Rhythm: r egular rhythm Heart sounds: S1 normal heart sound present, S2 normal heart sound present, no click, no gallops and Murmur heart sound present systolic decrescendo and crescendo GI: Auscultation: normal bowel sounds Skin: General skin exam: no rashes or lesions noted Neuro: General: no focal motor deficits and confusion Objective Labs and Meds 06/11/23 05:00 06/11/23 05:00 Lab results: Laboratory Results - last 24 hr 06/10/23 06/10/23 06/10/23 12:38 12:53 13:09 WBC 12.1 H RBC 4.01 L Hgb 11.4 L Hct 35.9 L MCV 89.5 MCH 28.4 MCHC 31.8 RDW 20.9 H Plt Count 163 MPV 11.6 Immature Gran % (Auto) 0.5 H Neut % (Auto) 81.0 H Lymph % (Auto) 10.2 L [place] % (Auto) 7.3 Eos % (Auto) 0.6 Baso % (Auto) 0.4 Lymph # (Auto) 1.2 [place] # (Auto) 0.9 Eos # (Auto) 0.1 Baso # (Auto) 0.1 Abs Immat Gran (auto) 0.06 H Absolute Neuts (auto) 9.8 H Absolute Nucleated RBC 0.160 H Nucleated RBC % (auto) 1.3 H PT 15.0 H INR 1.2 H Sodium 137 Potassium 4.4 Chloride 98 Carbon Dioxide 28 Anion Gap 15 BUN 29 H Creatinine 5.83 H* Estim Creat Clear Calc 5.4 Estimated GFR 7 Random Glucose 100 Lactic Acid 2.9 H* Lactic Acid F/U @ 2Hr Lactic Acid F/U @ 4Hr Calcium 10.2 D Magnesium 2.0 Total Bilirubin 0.9 Direct Bilirubin 0.4 AST 36 H ALT 15 Alkaline Phosphatase 104 Troponin I High Sens 958.4 H* B-Natriuretic Peptide 1786 H Total Protein 7.0 Albumin 2.9 L Lipase 17 Procalcitonin 0.69 Influenza Type A (PCR) NEGATIVE Influenza Type B (PCR) NEGATIVE RSV RNA Qual (PCR) NEGATIVE SARS-CoV-2 RNA (RT-PCR) NEGATIVE Blood Type A Positive Antibody Screen POSITIVE Antibody Identification Anti-E Antigen Identification VELIA, Polyspecific Positive VELIA Work-up Crossmatch ([facility]) 06/10/23 06/10/23 06/10/23 13:09 15:16 17:57 WBC RBC Hgb Hct MCV MCH MCHC RDW Plt Count MPV Immature Gran % (Auto) Neut % (Auto) Lymph % (Auto) [place] % (Auto) Eos % (Auto) Baso % (Auto) Lymph # (Auto) [place] # (Auto) Eos # (Auto) Baso # (Auto) Abs Immat Gran (auto) Absolute Neuts (auto) Absolute Nucleated RBC Nucleated RBC % (auto) PT INR Sodium Potassium Chloride Carbon Dioxide Anion Gap BUN Creatinine Estim Creat Clear Calc Estimated GFR Random Glucose Lactic Acid Lactic Acid F/U @ 2Hr 3.1 H* Lactic Acid F/U @ 4Hr 1.2 Calcium Magnesium Total Bilirubin Direct Bilirubin AST ALT Alkaline Phosphatase Troponin I High Sens 768.4 H* B-Natriuretic Peptide Total Protein Albumin Lipase Procalcitonin Influenza Type A (PCR) Influenza Type B (PCR) RSV RNA Qual (PCR) SARS-CoV-2 RNA (RT-PCR) Blood Type Antibody Screen Antibody Identification Inconclusive Antigen Identification E Antigen - NEGATIVE VELIA, Polyspecific NEGATIVE Positive VELIA Work-up TNP Crossmatch ([facility]) See Detail 06/11/23 05:00 WBC 9.3 RBC 3.09 L D Hgb 8.8 L D Hct 27.2 L D MCV 88.0 MCH 28.5 MCHC 32.4 RDW 20.1 H Plt Count 135 L MPV 11.8 Immature Gran % (Auto) 0.4 Neut % (Auto) 75.4 H Lymph % (Auto) 13.0 L [place] % (Auto) 8.8 Eos % (Auto) 1.8 Baso % (Auto) 0.6 Lymph # (Auto) 1.2 [place] # (Auto) 0.8 Eos # (Auto) 0.2 Baso # (Auto) 0.1 Abs Immat Gran (auto) 0.04 H Absolute Neuts (auto) 7.0 Absolute Nucleated RBC 0.050 H Nucleated RBC % (auto) 0.5 H PT INR Sodium 139 Potassium 3.7 Chloride 103 Carbon Dioxide 25 Anion Gap 15 BUN 30 H Creatinine 5.78 H* Estim Creat Clear Calc 5.4 Estimated GFR 7 Random Glucose 79 Lactic Acid Lactic Acid F/U @ 2Hr Lactic Acid F/U @ 4Hr Calcium 9.8 Magnesium Total Bilirubin Direct Bilirubin AST ALT Alkaline Phosphatase Troponin I High Sens B-Natriuretic Peptide Total Protein Albumin Lipase Procalcitonin Influenza Type A (PCR) Influenza Type B (PCR) RSV RNA Qual (PCR) SARS-CoV-2 RNA (RT-PCR) Blood Type Antibody Screen Antibody Identification Antigen Identification VELIA, Polyspecific Positive VELIA Work-up Crossmatch ([facility]) Imaging Radiologist's impression: Impressions Chest X-Ray 06/10/23 12:40 IMPRESSION: 1. Low lung volumes. 2. Increased opacity in the mid and lower left hemithorax which could be due to pleural effusion and/or elevation of the left hemidiaphragm. Assessment and Plan (1) Non-ST elevation CA (NSTEMI): Status: Acute NSTEMI in this elderly woman with underlying severe cardiomyopathy and possibly high likelihood of underlying coronary arteries and possible aortic stenosis. She came in with significant hypertension leading to lactic acidosis and her NSTEMI is most likely secondary to significant hypotension. Question cause of her significant hypertension could be GI bleed or sepsis. Although could be also over dialysis in the patient with significant lead reduced cardiac reserves, probably preload dependent. Need to closely monitor a blood pressure during dialysis sessions and avoid significant hypotension and treated with fluid replacement. Given her significant advanced cognitive dysfunction and overall poor functional status, conservative medical therapy will pursued. Evaluate for GI bleed and if she has likelihood of GI bleed reconsider Eliquis therapy. Will sign off the case and follow-up as need be. Thank you for allowing me to partake in her care Procedures Date of Service Date of Service: 06/11/23
--- NOTE | 2023-06-11 12:35 | P.CONNP_ITS ---
History of Present Illness Reason for Consult Consult date: 06/11/23 Chief Complaint Chief complaint: Hypotension, elevated Trop I History of Present Illness Narrative: 87 years old lady with ESRD on HD TTS among other medical issues who presented to ED for low BP readings while in Dialysis. She denies any complaints, chest pain, palpitations, SOB, nausea, vomiting, diarrhea or urinary symptoms. In ED she was found to have elevated lactic acid and Troponin with no changes on EKG to suggest ACS. Admitted for close monitoring. Nephrology has been consulted to assist in her clinical care during her current hospital stay Review of Systems Review of Systems Yes all other systems are reviewed and are negative PMFSH Past Medical History Medical History Hyperlipidemia Anemia in chronic kidney disease NSTEMI (non-ST elevated myocardial infarction) CHF (congestive heart failure) PAF (paroxysmal atrial fibrillation) TIA (transient ischemic attack) Depression JOSE (obstructive sleep apnea) HTN (hypertension) Vascular dementia ESRD (end stage renal disease) Social History Social History Patient Tobacco Use Status: Tobacco use Unknown Smoked in Last 30 Days: No Use of substances other than those prescribed or required for medical reasons: No Advance Directives: No Advance Directives Information Provided: No Nutrition Risks: No Nutritional Risk service: No Meds Allergies Allergy/AdvReac Type Severity Reaction Status Date / Time lisinopril Allergy Unknown Verified 06/10/23 12:23 Active Medications: Current Medications Acetaminophen (Acetaminophen 325 Mg Tablet) 650 mg PO Q6H PRN PRN Reason: Pain, Mild (Pain Scale 1-3) Albuterol Sulfate (Albuterol Sulfate (0.083%) 2.5 Mg/3 Ml Vial.Smith) 2.5 mg INHALE Q6H PRN PRN Reason: Shortness Of Breath Albuterol Sulfate (Albuterol Sulfate 90 Mcg 8 Gm Inhaler) 2 puff INHALE Q4H PRN PRN Reason: Shortness Of Breath Apixaban (Apixaban 2.5 Mg Tablet) 2.5 mg PO BID [facility] Last Admin: 06/11/23 08:28 Dose: 2.5 mg Aspirin (Aspirin Enteric Coated 81 Mg Tablet.) 81 mg PO DAILY [facility] Last Admin: 06/11/23 08:28 Dose: 81 mg Atorvastatin Calcium (Atorvastatin Calcium 40 Mg Tablet) 40 mg PO DAILY [facility] Last Admin: 06/11/23 08:28 Dose: 40 mg Buspirone HCl (Buspirone Hcl 10 Mg Tablet) 10 mg PO BID [facility] Last Admin: 06/11/23 11:09 Dose: Not Given Carvedilol (Carvedilol 3.125 Mg Tablet) 3.125 mg PO BID [facility]; Protocol Last Admin: 06/11/23 08:29 Dose: 3.125 mg Heparin Sodium (Porcine) (Heparin Sodium,Porcine 5,000 Unit/Ml Vial) 5,000 unit INTRACATH TUTHSA@1645 [facility] Melatonin (Melatonin 3 Mg Tablet) 3 mg PO BEDTIME [facility] Last Admin: 06/10/23 21:16 Dose: 3 mg Multivitamins/Vitamin C (Multivitamin Tablet) 1 tab PO DAILY [facility] Last Admin: 06/11/23 08:28 Dose: 1 tab Omeprazole (Omeprazole 20 Mg Capsule.Dr) 20 mg PO BID@0630,1630 [facility] Last Admin: 06/11/23 06:06 Dose: 20 mg Ondansetron HCl (Ondansetron Hcl 4 Mg/2 Ml Vial) 4 mg IVPUSH Q8H PRN PRN Reason: Nausea and Vomiting Oxybutynin Chloride (Oxybutynin Chloride 5 Mg Tablet) 5 mg PO BID [facility] Last Admin: 06/11/23 11:09 Dose: Not Given Polyethylene Glycol (Polyethylene Glycol 3350 17 Gm Powd.Pack) 17 gm PO DAILY PRN PRN Reason: Constipation Senna (Sennosides 8.6 Mg Tablet) 8.6 mg PO BID PRN PRN Reason: Constipation Sodium Chloride (0.9 % Sodium Chloride Flush 3 Ml Syringe) 3 ml IVFLUSH QSHIFT [facility] Last Admin: 06/11/23 08:28 Dose: Not Given Vitamin D (Cholecalciferol (Vitamin D3) 25 Mcg Tablet) 25 mcg PO DAILY [facility] Last Admin: 06/11/23 08:28 Dose: 25 mcg Home Medications ?Medication ?Instructions ?Recorded ?Confirmed ?Last Taken ?Type albuterol sulfate 2.5 mg/3 mL 2.5 mg inhalation Q6H PRN 06/10/23 06/10/23 Unknown History (0.083 %) solution for nebulization Shortness Of Breath albuterol sulfate 90 mcg/actuation 2 puff inhalation Q4H PRN 06/10/23 06/10/23 Unknown History aerosol inhaler Shortness Of Breath apixaban 2.5 mg tablet (Eliquis) 2.5 mg PO BID 06/10/23 06/10/23 Unknown History aspirin 81 mg capsule 81 mg PO DAILY 06/10/23 06/10/23 Unknown History atorvastatin 40 mg tablet 40 mg PO DAILY 06/10/23 06/10/23 Unknown History buspirone 5 mg tablet 10 mg PO BID 06/10/23 06/10/23 Unknown History carvedilol 3.125 mg tablet 3.125 mg PO BID 06/10/23 06/10/23 Unknown History cholecalciferol (vitamin D3) 25 25 mcg PO DAILY 06/10/23 06/10/23 Unknown History mcg (1,000 unit) tablet hydralazine 25 mg tablet 25 mg PO BID 06/10/23 06/10/23 Unknown History melatonin 3 mg tablet 3 mg PO BEDTIME 06/10/23 06/10/23 Unknown History multivitamin 1 tab PO DAILY 06/10/23 06/10/23 Unknown History nystatin 100,000 unit/gram topical 1 appl topical DAILY 06/10/23 06/10/23 Unknown History powder oxybutynin chloride 5 mg tablet 5 mg PO BID 06/10/23 06/10/23 Unknown History pantoprazole 20 mg tablet,delayed 20 mg PO BID@0630,1630 06/10/23 06/10/23 Unknown History release polyethylene glycol 3350 17 gram 17 g PO DAILY PRN Constipation 06/10/23 06/10/23 Unknown History oral powder packet (Miralax) sennosides 8.6 mg tablet (senna) 8.6 mg PO BID PRN Constipation 06/10/23 06/10/23 Unknown History Physical Exam Vital Signs: Last Vital Signs Temp 97.7 F 06/10/23 19:35 Pulse 60 06/11/23 08:36 Resp 20 06/11/23 08:30 BP 142/62 H 06/11/23 08:36 Pulse Ox 98 06/11/23 08:36 O2 Del Method Room Air 06/11/23 08:30 O2 Flow Rate 2 06/10/23 21:20 BMI result Body Mass Index 24.7 Const General: no acute distress Neck Neck: Yes supple Resp Auscultation: diminished lung sounds Cardio Rate: regular rate GI Palpation (GI): Soft to palpation Neuro General: moves all extremities Results Lab Results 06/11/23 05:00 06/11/23 05:00 Lab results: Chemistry 06/10/23 06/11/23 12:38 05:00 Sodium 137 139 Potassium 4.4 3.7 Carbon Dioxide 28 25 BUN 29 H 30 H Creatinine 5.83 H* 5.78 H* Calcium 10.2 D 9.8 Hematology 06/10/23 06/11/23 12:53 05:00 WBC 12.1 H 9.3 Hgb 11.4 L 8.8 L D Plt Count 163 135 L Assessment and Plan (1) ESRD on dialysis: Status: Acute Plan [place] has ESRD and is dialysis dependent She usually gets hemodialysis on Wednesday She has a functioning PermCath. Currently she is hemodynamically stable We need to adjust her dry weight on dialysis to avoid further hypotension Shall put her back on hemodialysis tomorrow morning(ordered) Phosphorus binders 3 times a day with meals Procrit 49047 units tomorrow Shall be followed by Dr. Jacobo once she gets discharged from the hospital Procedures Date of Service Date of Service: 06/11/23
--- NOTE | 2023-06-11 13:26 | P.PNIM_ITS ---
Subjective Subjective Date of Service: 06/11/23 Interval History: seen and evaluated this morning feel ok overall BP recovered No reported overnight events Review of Systems Review of Systems: Yes all other systems are reviewed and are negative Physical Exam 2 Vital Signs: Vital Signs: Last Vital Signs Temp 97.7 F 06/10/23 19:35 Pulse 60 06/11/23 12:54 Resp 14 06/11/23 12:54 BP 140/57 H 06/11/23 12:54 Pulse Ox 100 06/11/23 12:54 O2 Del Method Nasal Cannula 06/11/23 12:54 O2 Flow Rate 2 06/11/23 12:54 BMI result Body Mass Index 24.7 Const: Other: Constitutional : Awake, interactive, not in distress Neck : Normal inspection, Supple Cardiovascular : RRR, no JVP, no lower extremity edema Respiratory : good bilateral air entry, no crackles, wheezes or rhonchi Gastrointestinal: soft, lax, Normal bowel sounds, Non tender Skin : Warm, Dry, permacath in place and clean, sacral wound with multiple open areas Neurological : Alert & oriented to self , No focal deficit Objective Data Active Medications Acetaminophen (Acetaminophen 325 Mg Tablet) 650 mg PO Q6H PRN PRN Reason: Pain, Mild (Pain Scale 1-3) Albuterol Sulfate (Albuterol Sulfate (0.083%) 2.5 Mg/3 Ml Vial.Neb) 2.5 mg INHALE Q6H PRN PRN Reason: Shortness Of Breath Albuterol Sulfate (Albuterol Sulfate 90 Mcg 8 Gm Inhaler) 2 puff INHALE Q4H PRN PRN Reason: Shortness Of Breath Apixaban (Apixaban 2.5 Mg Tablet) 2.5 mg PO BID [facility] Last Admin: 06/11/23 08:28 Dose: 2.5 mg Documented By: STONEY Aspirin (Aspirin Enteric Coated 81 Mg Tablet.) 81 mg PO DAILY [facility] Last Admin: 06/11/23 08:28 Dose: 81 mg Documented By: STONEY Atorvastatin Calcium (Atorvastatin Calcium 40 Mg Tablet) 40 mg PO DAILY [facility] Last Admin: 06/11/23 08:28 Dose: 40 mg Documented By: STONEY Buspirone HCl (Buspirone Hcl 10 Mg Tablet) 10 mg PO BID [facility] Last Admin: 06/11/23 11:09 Dose: Not Given Documented By: STONEY Non-Admin Reason: See Note Carvedilol (Carvedilol 3.125 Mg Tablet) 3.125 mg PO BID [facility]; Protocol Last Admin: 06/11/23 08:29 Dose: 3.125 mg Documented By: STONEY Heparin Sodium (Porcine) (Heparin Sodium,Porcine 5,000 Unit/Ml Vial) 5,000 unit INTRACATH TUTHSA@1645 [facility] Melatonin (Melatonin 3 Mg Tablet) 3 mg PO BEDTIME [facility] Last Admin: 06/10/23 21:16 Dose: 3 mg Documented By: CHAY Multivitamins/Vitamin C (Multivitamin Tablet) 1 tab PO DAILY [facility] Last Admin: 06/11/23 08:28 Dose: 1 tab Documented By: STONEY Omeprazole (Omeprazole 20 Mg Capsule.Dr) 20 mg PO BID@0630,1630 [facility] Last Admin: 06/11/23 06:06 Dose: 20 mg Documented By: PANCHO Ondansetron HCl (Ondansetron Hcl 4 Mg/2 Ml Vial) 4 mg IVPUSH Q8H PRN PRN Reason: Nausea and Vomiting Oxybutynin Chloride (Oxybutynin Chloride 5 Mg Tablet) 5 mg PO BID [facility] Last Admin: 06/11/23 11:09 Dose: Not Given Documented By: STONEY Non-Admin Reason: See Note Polyethylene Glycol (Polyethylene Glycol 3350 17 Gm Powd.Pack) 17 gm PO DAILY PRN PRN Reason: Constipation Senna (Sennosides 8.6 Mg Tablet) 8.6 mg PO BID PRN PRN Reason: Constipation Sodium Chloride (0.9 % Sodium Chloride Flush 3 Ml Syringe) 3 ml IVFLUSH QSHIFT [facility] Last Admin: 06/11/23 08:28 Dose: Not Given Documented By: STONEY Non-Admin Reason: IV Running Vitamin D (Cholecalciferol (Vitamin D3) 25 Mcg Tablet) 25 mcg PO DAILY [facility] Last Admin: 06/11/23 08:28 Dose: 25 mcg Documented By: STONEY Labs 06/11/23 05:00 06/11/23 05:00 Labs: Laboratory Results - last 24 hr 06/10/23 06/10/23 06/10/23 12:38 12:53 13:09 MCV MCH MCHC RDW Plt Count MPV Immature Gran % (Auto) Neut % (Auto) Lymph % (Auto) Whiteside % (Auto) Eos % (Auto) Baso % (Auto) Lymph # (Auto) Whiteside # (Auto) Eos # (Auto) Baso # (Auto) Abs Immat Gran (auto) Absolute Neuts (auto) Absolute Nucleated RBC Nucleated RBC % (auto) Anion Gap Estim Creat Clear Calc Estimated GFR Random Glucose Lactic Acid 2.9 H* Lactic Acid F/U @ 2Hr Lactic Acid F/U @ 4Hr Calcium Troponin I High Sens B-Natriuretic Peptide 1786 H Influenza Type A (PCR) NEGATIVE Influenza Type B (PCR) NEGATIVE RSV RNA Qual (PCR) NEGATIVE SARS-CoV-2 RNA (RT-PCR) NEGATIVE Blood Type A Positive Antibody Screen POSITIVE Antibody Identification Anti-E Antigen Identification VELIA, Polyspecific Positive VELIA Work-up Crossmatch ([facility]) 06/10/23 06/10/23 06/10/23 13:09 15:16 17:57 MCV MCH MCHC RDW Plt Count MPV Immature Gran % (Auto) Neut % (Auto) Lymph % (Auto) Whiteside % (Auto) Eos % (Auto) Baso % (Auto) Lymph # (Auto) Whiteside # (Auto) Eos # (Auto) Baso # (Auto) Abs Immat Gran (auto) Absolute Neuts (auto) Absolute Nucleated RBC Nucleated RBC % (auto) Anion Gap Estim Creat Clear Calc Estimated GFR Random Glucose Lactic Acid Lactic Acid F/U @ 2Hr 3.1 H* Lactic Acid F/U @ 4Hr 1.2 Calcium Troponin I High Sens 768.4 H* B-Natriuretic Peptide Influenza Type A (PCR) Influenza Type B (PCR) RSV RNA Qual (PCR) SARS-CoV-2 RNA (RT-PCR) Blood Type Antibody Screen Antibody Identification Inconclusive Antigen Identification E Antigen - NEGATIVE VELIA, Polyspecific NEGATIVE Positive VELIA Work-up TNP Crossmatch ([facility]) See Detail 06/11/23 05:00 MCV 88.0 MCH 28.5 MCHC 32.4 RDW 20.1 H Plt Count 135 L MPV 11.8 Immature Gran % (Auto) 0.4 Neut % (Auto) 75.4 H Lymph % (Auto) 13.0 L Whiteside % (Auto) 8.8 Eos % (Auto) 1.8 Baso % (Auto) 0.6 Lymph # (Auto) 1.2 Whiteside # (Auto) 0.8 Eos # (Auto) 0.2 Baso # (Auto) 0.1 Abs Immat Gran (auto) 0.04 H Absolute Neuts (auto) 7.0 Absolute Nucleated RBC 0.050 H Nucleated RBC % (auto) 0.5 H Anion Gap 15 Estim Creat Clear Calc 5.4 Estimated GFR 7 Random Glucose 79 Lactic Acid Lactic Acid F/U @ 2Hr Lactic Acid F/U @ 4Hr Calcium 9.8 Troponin I High Sens B-Natriuretic Peptide Influenza Type A (PCR) Influenza Type B (PCR) RSV RNA Qual (PCR) SARS-CoV-2 RNA (RT-PCR) Blood Type Antibody Screen Antibody Identification Antigen Identification VELIA, Polyspecific Positive VELIA Work-up Crossmatch ([facility]) Assessment and Plan (1) ESRD on dialysis: Status: Acute (2) Elevated troponin: Status: Acute (3) Elevated WBC count: Status: Acute (4) Acute hypotension: Status: Acute (5) Acute lactic acidosis: Status: Acute Plan An 87 years old lady with PMH of 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 Hypotension secondary to dialysis removal of fluids resolved after IVF Hold BP meds for now Sacral pressure wound stage 2 Wound care evaluation Lactic acidosis resolved Elevated Trop I trended down No EKG changes to suggest ACS Continue ASA, Statin and BB cardiology input appreciated, avoid hypotension with dialysis, likely type 2 NSTEMI from hypotension Leukocytosis resolved, likely reactive follow CBC Hold on Abx as no clear source of Infx identified ESRD on dialysis Nephrology input appreciated, adjust dry weight Hx PAF Continue Eliquis and Carvedilol DVT PPx Eliquis The patient will likely need overnight hospital stay for close monitoring of BP, evaluated high Trop I pending nephrology consultation Quality Stroke Does the patient have a stroke diagnosis?: No VTE Prior VTE?: No VTE Risk Level:: Medical - moderate - high VTE Device Contraindication: Treatment Not Indicated VTE Drug Contraindication: N/A - Med Ordered
--- NOTE | 2023-06-11 15:11 | HO.WOUND ---
Wound Consult: Initial 87yr old? female admitted to [facility] on 06/10/23 - See progress notes and H&P for detailed history.? Wound consult placed for sacral wound while in Emergency department. Arrival to bedside family at bedside patient is [place] Citizen speaking - per family they will be able to answer my questions as she is not always clear to answer them.?They were agreeable to assessment and photo documentation.? They report the wound was discovered over a week ago and they believe the facility has been putting cream on it. We discussed pressure injury development the role nutrition plays in skin health, and the importance of turning and repositioning every 2 hours, proper mattress surface. Of note patient is on a stretcher will need OZZIE bed ordered. Family report understanding. They report her PO intact is limited - nutrition consult to be placed. Sacrum Etiology: ?Deep Tissue Injury in Evolution - ?Present on Admission Measurements: see charting for detailed measurements Wound Bed: dark purple nonblanchable tissue with central epidermal layer lifting revealing red moist tissue Drainage / Odor: none noted Edges: ? irregular Allison wound: ?red erythema, dark scattered nonblanchable purple tissue - No Induration, Fluctuance noted Pain: patient reports pain Goals of Treatment: ? Off Load Pressure, Triad to protect from moisture and friction and foam dressing to aid in pressure redistribution. Recommendations: 1. Turn and Reposition every 2 hours and as needed for patient comfort.? Use pillows or wedges to support off loading positions. 2. Off Load all bony prominences with use of pillows and heel boots if needed.? Apply Preventative foams where needed. ? 3. Monitor for incontinence and moisture control, use barrier creams when needed for prevention and treatment. Purewick in place. 4. Provide adequate and supplemental nutrition.? Nutrition consult placed. 5. Order low air loss mattress. 6. When applicable maintain blood glucose levels per Providers order. 7. Sacrum - Off Load Pressure - Cleanse with PH balance spray or wipes, pat dry. ?Apply thin layer of Triad to wound bed. Do not remove all of paste between applications as this may cause further skin damage.? Cover with foam dressing to aid in off loading and protection from friction. Re-consult wound care Nurse for wound deterioration or wound changes.
[2023-06-11] MEDS: Acetaminophen 325 MG TABLET 650 MG PO (21:56)
[2023-06-11] MEDS: busPIRone HCl 10 MG TABLET PO (21:57)
[2023-06-11] MEDS: Melatonin 3 MG TABLET PO (21:57)
[2023-06-11] MEDS: oxyBUTYnin chloride 5 MG TABLET PO (21:58)
[2023-06-11] MEDS: 0.9 % Sodium Chloride Flush 3 ML SYRINGE IVFLUSH (22:07)
[2023-06-12] MEDS: Aspirin Enteric Coated 81 MG TABLET.DR PO (08:55)
[2023-06-12] MEDS: Atorvastatin Calcium 40 MG TABLET PO (08:55)
[2023-06-12] MEDS: Cholecalciferol (Vitamin D3) 25 MCG TABLET PO (08:55)
[2023-06-12] MEDS: oxyBUTYnin chloride 5 MG TABLET PO ×2 (08:55→22:06)
[2023-06-12] MEDS: Apixaban 2.5 MG TABLET PO ×2 (08:55→22:07)
[2023-06-12] MEDS: Midodrine HCl 5 MG TABLET PO ×2 (08:55→09:11)
[2023-06-12] MEDS: 0.9 % Sodium Chloride Flush 3 ML SYRINGE IVFLUSH ×3 (08:56→22:07)
[2023-06-12] MEDS: busPIRone HCl 10 MG TABLET PO (08:56)
[2023-06-12] MEDS: Multivitamin TABLET 1 TAB PO (08:56)
[2023-06-12 09:55] VITALS: BP 111/53; PULSE 62; RESP 17; TEMP 36.3; O2SAT 97
[2023-06-12 11:05] VITALS: BP 114/77; PULSE 59; RESP 20; TEMP 36.2; O2SAT 98
--- NOTE | 2023-06-12 13:02 | HO.PM.IMPN ---
Subjective Subjective Date of Service: 06/12/23 Interval History: seen and evaluated this morning BP dropped while in dialysis this morning requiring IV boluses More altered and encephalopathic No reported overnight events Review of Systems Review of Systems: Yes Unobtainable due to mental status Physical Exam Vital Signs: Vital Signs: Last Vital Signs Temp 97.2 F 06/12/23 11:05 Pulse 59 06/12/23 11:05 Resp 20 06/12/23 11:05 BP 114/77 06/12/23 11:05 Pulse Ox 98 06/12/23 11:05 O2 Del Method Room Air 06/12/23 11:05 O2 Flow Rate 2 06/11/23 15:44 BMI result Body Mass Index 24.5 Const: Other: Constitutional : difficult to arouse, not in distress Neck : Normal inspection, Supple Cardiovascular : RRR, no JVP, no lower extremity edema Respiratory : good bilateral air entry, no crackles, wheezes or rhonchi Gastrointestinal: soft, lax, Normal bowel sounds, Non tender Skin : Warm, Dry, permacath in place and clean, sacral wound with multiple open areas Neurological : Altered, response to stimuli with mumbling , No focal deficit Objective Data Active Medications Acetaminophen (Acetaminophen 325 Mg Tablet) 650 mg PO Q6H PRN PRN Reason: Pain, Mild (Pain Scale 1-3) Last Admin: 06/11/23 21:56 Dose: 650 mg Documented By: DAGOBERTO Albuterol Sulfate (Albuterol Sulfate (0.083%) 2.5 Mg/3 Ml Vial.Smith) 2.5 mg INHALE Q6H PRN PRN Reason: Shortness Of Breath Albuterol Sulfate (Albuterol Sulfate 90 Mcg 8 Gm Inhaler) 2 puff INHALE Q4H PRN PRN Reason: Shortness Of Breath Apixaban (Apixaban 2.5 Mg Tablet) 2.5 mg PO BID [facility] Last Admin: 06/12/23 08:55 Dose: 2.5 mg Documented By: HAILEY Aspirin (Aspirin Enteric Coated 81 Mg Tablet.) 81 mg PO DAILY [facility] Last Admin: 06/12/23 08:55 Dose: 81 mg Documented By: HAILEY Atorvastatin Calcium (Atorvastatin Calcium 40 Mg Tablet) 40 mg PO DAILY [facility] Last Admin: 06/12/23 08:55 Dose: 40 mg Documented By: HAILEY Carvedilol (Carvedilol 3.125 Mg Tablet) 3.125 mg PO BID [facility]; Protocol Last Admin: 06/12/23 08:44 Dose: Not Given Documented By: HAILEY Non-Admin Reason: hypotension/ bradycardia Heparin Sodium (Porcine) (Heparin Sodium,Porcine 5,000 Unit/Ml Vial) 5,000 unit INTRACATH TUTHSA@1645 [facility] Ceftriaxone Sodium 1 gm/ (Sodium Chloride) 50 mls @ 100 mls/hr IV Q24H [facility] Melatonin (Melatonin 3 Mg Tablet) 3 mg PO BEDTIME [facility] Last Admin: 06/11/23 21:57 Dose: 3 mg Documented By: DAGOBERTO Multivitamins/Vitamin C (Multivitamin Tablet) 1 tab PO DAILY [facility] Last Admin: 06/12/23 08:56 Dose: 1 tab Documented By: HAILEY Omeprazole (Omeprazole 20 Mg Capsule.Dr) 20 mg PO BID@0630,1630 [facility] Last Admin: 06/12/23 08:45 Dose: Not Given Documented By: HAILEY Non-Admin Reason: unable to swallow Ondansetron HCl (Ondansetron Hcl 4 Mg/2 Ml Vial) 4 mg IVPUSH Q8H PRN PRN Reason: Nausea and Vomiting Oxybutynin Chloride (Oxybutynin Chloride 5 Mg Tablet) 5 mg PO BEDTIME [facility] Polyethylene Glycol (Polyethylene Glycol 3350 17 Gm Powd.Pack) 17 gm PO DAILY PRN PRN Reason: Constipation Senna (Sennosides 8.6 Mg Tablet) 8.6 mg PO BID PRN PRN Reason: Constipation Sodium Chloride (0.9 % Sodium Chloride Flush 3 Ml Syringe) 3 ml IVFLUSH QSHIFT [facility] Last Admin: 06/12/23 08:56 Dose: 3 ml Documented By: HAILEY Vitamin D (Cholecalciferol (Vitamin D3) 25 Mcg Tablet) 25 mcg PO DAILY [facility] Last Admin: 06/12/23 08:55 Dose: 25 mcg Documented By: HAILEY Labs 06/11/23 05:00 06/11/23 05:00 Microbiology Microbiology Results: Microbiology 06/10/23 12:54 Blood Culture - Preliminary Blood - Venous No growth after 24 hours. 06/10/23 12:38 Blood Culture - Preliminary Blood - Venous No growth after 24 hours. 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 Acute toxic metabolic encephalopathy secondary to medications, hypotension and question of infection DC Buspirone and lower Oxyvutynin Start Midodrine with dialysis Empirical Ceftriaxone Hypotension secondary to dialysis removal of fluids improved after IVF DC BP meds for now Midodrine before dialysis Sacral pressure wound stage 2 local care, Wound care evaluation Lactic acidosis resolved Elevated Trop I trended down No EKG changes to suggest ACS Continue ASA, Statin and BB cardiology input appreciated, avoid hypotension with dialysis, likely type 2 NSTEMI from hypotension Leukocytosis resolved, likely reactive follow CBC Hold on Abx as no clear source of Infx identified ESRD on dialysis Nephrology input appreciated, adjust dry weight Hx PAF Continue Eliquis and Carvedilol DVT PPx Eliquis The patient will likely need overnight hospital stay for close monitoring of BP, encephalopathy pending clinical improvement Quality Stroke Does the patient have a stroke diagnosis?: No VTE Prior VTE?: No VTE Risk Level:: Medical - moderate - high VTE Device Contraindication: Treatment Not Indicated VTE Drug Contraindication: N/A - Med Ordered
[2023-06-12] MEDS: cefTRIAXone sodium 1 GM in 0.9 % Sodium Chloride 50 ML IV (13:16)
[2023-06-12 15:48] VITALS: BP 83/40; PULSE 62; RESP 20; TEMP 36.3; O2SAT 99
[2023-06-12 16:30] VITALS: BP 118/55; PULSE 60; RESP 17
[2023-06-12 18:50] VITALS: BP 110/53; PULSE 59; RESP 20; TEMP 36.7; O2SAT 99
[2023-06-12] MEDS: Acetaminophen 325 MG TABLET 650 MG PO (22:06)
[2023-06-12] MEDS: Melatonin 3 MG TABLET PO (22:06)
[2023-06-13] VITALS: BP 105/51; PULSE 82; RESP 18; TEMP 36.4; O2SAT 95
[2023-06-13 03:52] VITALS: BP 114/58; PULSE 60; RESP 20; TEMP 36.4; O2SAT 97
[2023-06-13 07:03] VITALS: BP 117/59; PULSE 62; RESP 20; TEMP 37.2; O2SAT 99
[2023-06-13 07:06] LABS: NRBC Pct Auto 0.3 /100WBC (0.0-0.2); PLT CLUMP 1
[2023-06-13 07:07] LABS: Hematocrit 29.6 % (37.0-47.0); Hemoglobin 9.7 g/dl (12.0-16.0); Mean Corpuscular HGB Conc 32.8 g/dl (31.0-35.0); Mean Corpuscular Hemoglobin 29.1 pg (27.0-33.0); Mean Corpuscular Volume 88.9 fL (80.0-98.0); Mean Platelet Volume 12.6 fL (9.4-12.3); Red Blood Count 3.33 X10*6/uL (4.20-5.50); Red Cell Distribution Width 20.2 % (11.0-16.0)
[2023-06-13 07:26] LABS: White Blood Count 9.4 X10*3/uL (4.8-10.8)
[2023-06-13 07:27] LABS: Platelet Count 91 X10*3/uL (160-400)
[2023-06-13] MEDS: Midodrine HCl 10 MG TABLET PO (09:00)
[2023-06-13] MEDS: Cholecalciferol (Vitamin D3) 25 MCG TABLET PO (09:00)
[2023-06-13] MEDS: Apixaban 2.5 MG TABLET PO (09:00)
[2023-06-13] MEDS: 0.9 % Sodium Chloride Flush 3 ML SYRINGE IVFLUSH (09:00)
[2023-06-13] MEDS: Multivitamin TABLET 1 TAB PO (09:00)
[2023-06-13] MEDS: Atorvastatin Calcium 40 MG TABLET PO (09:00)
--- NOTE | 2023-06-13 10:42 | P.F2F_ITS ---
Service Date Service Date: 06/13/23 Encounter Date of encounter: 06/13/23 Reasons for Services Signs and symptoms assessed: physical deconditioning Reason for physical therapy: home safety and mobility and therapeutic exercises Homebound: Leaving the home is medically contraindicated at this time without the asist of a device and/or another person due th the listed conditions above and below. Reason homebound: unsteady gait / fall risk Certification: Based on the above findings, I certify that this patient is confined to the home and needs intermittent residential care, physical therapy and/or speech therapy, or continues to need occupational therapy. The patient is under my care, and I have initiated the establishment of the plan of care. The patient will be followed by a physician who will periodically review the plan of care. Time Spent With Patient Time: Total time managing care of this patient today ____ minutes.
--- NOTE | 2023-06-13 10:43 | PM.DS ---
DS: Providers Provider Date of Service: 06/13/23 Date of admission: 06/10/23 16:43 Primary care physician: Unknown Physician Consults: 06/10/23 16:49 Consult to Nephrology Routine Consulting Provider: [facility] Reason for consultation: Needs HD, BP dropped significantly during last session 06/11/23 07:43 Consult to Cardiology Routine Consulting Provider: [facility] Reason for consultation: Hypotension at HD, Troponin leak, for eval and rec. 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 The patient denies any complaints, chest pain, palpitations, SOB, nausea, vomiting, diarrhea or urinary symptoms. In ED she was found to have elevated lactic acid and Troponin with no changes on EKG to suggest ACS. Admitted for close monitoring. Hospital course # Acute toxic metabolic encephalopathy secondary to medications, hypotension and question of infection. Improved after DC Buspirone and lower Oxybutynin. Started Midodrine with dialysis and treated with Empirical Ceftriaxone with good response as her mentation improved to baseline. # Hypotension secondary to dialysis removal of fluids. improved after IVF. Hydralazine was discontinued. And she was started on Midodrine before dialysis with fair resoponse. # Sacral pressure wound stage 2 local care, Wound care evaluated the patient. will do VNA at dishcarge. # NSTEMI Type II per cardiology evaluation likely from low blood pressure. kept on ASA, Statin and BB. cardiology input appreciated, avoid hypotension with dialysis # ESRD on dialysis Nephrology followed the patient and adjusted dry weight. Started Midodrine before dialysis. To continue dialysis as outpatient # PHysical deconditioning PT at home. Discharge Plan Decrease Oxybutynin to 5 mg at bedtime only Discontinue Buspar and HYdralazine Hold Morning dose Carvedilol before dialysis Take Midodrine before dialysis Continue 3 more days of Ceftin Encourage oral intake and stay well hydrated Time Attestation Discharge Coordination Time (in mins): 43 Quality: Safe Use of Opioids Does Pt have an Active Cancer Diagnosis on the Problem List?: No Quality: Stroke Does the patient have a stroke diagnosis?: No Physical Exam Vital Signs: Vital Signs: Last Vital Signs Temp 98.9 F 06/13/23 07:03 Pulse 62 06/13/23 07:03 Resp 20 06/13/23 07:03 BP 117/59 L 06/13/23 07:03 Pulse Ox 99 06/13/23 07:03 O2 Del Method Room Air 06/13/23 07:03 O2 Flow Rate 2 06/11/23 15:44 BMI result Body Mass Index 24.5 Const: Other: Constitutional : alert and interactive, not in distress Neck : Normal inspection, Supple Cardiovascular : RRR, no JVP, no lower extremity edema Respiratory : good bilateral air entry, no crackles, wheezes or rhonchi Gastrointestinal: soft, lax, Normal bowel sounds, Non tender Skin : Warm, Dry, permacath in place and clean, sacral wound with multiple open areas Neurological : Alert, confused , No focal deficit DS: Data Data Completed and Pending Labs on day of discharge: Laboratory Results - last 24 hr 06/13/23 06:17 WBC 9.4 RBC 3.33 L Hgb 9.7 L Hct 29.6 L MCV 88.9 MCH 29.1 MCHC 32.8 RDW 20.2 H Plt Count 91 L D MPV 12.6 H Absolute Nucleated RBC 0.030 H Nucleated RBC % (auto) 0.3 H Preliminary micro results at discharge 06/10/23 12:54 Blood Culture - Preliminary Blood - Venous No growth after 48 hours. 06/10/23 12:38 Blood Culture - Preliminary Blood - Venous No growth after 48 hours. Imaging Chest x-ray: Radiologist's impression: ITS Impressions Chest X-Ray 06/10/23 12:40 IMPRESSION: 1. Low lung volumes. 2. Increased opacity in the mid and lower left hemithorax which could be due to pleural effusion and/or elevation of the left hemidiaphragm. Discharge Plan Discharge Anticipated Discharge Date/Time: 06/13/23 10:25 Patient Disposition: Home Health Service Discharge Diagnosis: Encephalopathy Low blood pressure Referrals: [facility] [Outside] Faustino Marin MD [Physician] - 1 Week Physician,Kitty J [Primary Care Provider] - Discharge Medications: New midodrine 10 mg Tablet 10 mg PO 3XW Qty: 30 0RF Rx Instructions: Before dialysis. cefuroxime axetil 250 mg tablet 250 mg PO BID Qty: 6 0RF Continued multivitamin Tablet 1 tab PO DAILY atorvastatin 40 mg Tablet 40 mg PO DAILY sennosides [senna] 8.6 mg Tablet 8.6 mg PO BID PRN (Reason: Constipation) albuterol sulfate 2.5 mg /3 mL (0.083 %) Solution For Nebulization 2.5 mg INHALATION Q6H PRN (Reason: Shortness Of Breath) polyethylene glycol 3350 [Miralax] 17 gram Powder In Packet 17 g PO DAILY PRN (Reason: Constipation) melatonin 3 mg Tablet 3 mg PO BEDTIME carvedilol 3.125 mg Tablet 3.125 mg PO BID Rx Instructions: must administer with a meal/food pantoprazole 20 mg Tablet,Delayed Release (Dr/Ec) 20 mg PO BID@0630,1630 nystatin 100,000 unit/gram Powder 1 appl TOPICAL DAILY albuterol sulfate 90 mcg/actuation Hfa Aerosol Inhaler 2 puff INHALATION Q4H PRN (Reason: Shortness Of Breath) cholecalciferol (vitamin D3) 25 mcg (1,000 unit) Tablet 25 mcg PO DAILY Eliquis 2.5 mg Tablet 2.5 mg PO BID aspirin 81 mg Capsule 81 mg PO DAILY Changed oxybutynin chloride 5 mg Tablet 5 mg PO BEDTIME Qty: 30 0RF Discontinued buspirone [BuSpar] 5 mg Tablet 10 mg PO BID hydralazine 25 mg Tablet 25 mg PO BID Discharge Orders: Discharge Order (Routine); Ordered 06/13/23 Ordered By: Marta Neil Diet: encourage fluid intake Activity on Discharge: As tolerated Stand Alone Forms: Patient Portal Discharge page Print Language: Korean Activity Restrictions/Additional Instructions: WOUND Instructions 1. Turn and Reposition every 2 hours and as needed for patient comfort.? Use pillows or wedges to support off loading positions. 2. Off Load all bony prominences with use of pillows and heel boots if needed.? Apply Preventative foams where needed. ? 3. Monitor for incontinence and moisture control, use barrier creams when needed for prevention and treatment. Purewick in place. 4. Provide adequate and supplemental nutrition.? Nutrition consult placed. 5. Order low air loss mattress. 6. When applicable maintain blood glucose levels per Providers order. 7. Sacrum - Off Load Pressure - Cleanse with PH balance spray or wipes, pat dry. ?Apply thin layer of Triad to wound bed. Do not remove all of paste between applications as this may cause further skin damage.? Cover with foam dressing to aid in off loading and protection from friction. Care Plan Goals: Read below Health Concerns: Read below Plan of Treatment: Read below Assessment: Decrease Oxybutynin to 5 mg at bedtime only Discontinue Buspar and HYdralazine Hold Morning dose Carvedilol before dialysis Take Midodrine before dialysis Continue 3 more days of Ceftin Encourage oral intake and stay well hydrated
[2023-06-13 11:02] LABS: Alanine Aminotransferase 11 U/L (0-31); Albumin Level 2.5 g/dL (3.5-5.0); Alkaline Phosphatase 75 U/L (39-117); Anion Gap 14 (12-20); Aspartate Amino Transferase 21 U/L (5-31); Bilirubin Direct 0.3 mg/dL (0.0-0.5); Bilirubin Total 0.5 mg/dL (0.0-1.0); Blood Urea Nitrogen 15 mg/dL (9-16); Calcium 8.7 mg/dL (8.4-10.2); Carbon Dioxide 20 mmol/L (22-29); Chloride 103 mmol/L (96-108); Creatinine Clr Calc Pharmacy 7.9; Estimated Glomerular Filt Rate 11; Glucose Random 78 mg/dL (60-115); Potassium 3.9 mmol/L (3.3-5.1); Sodium 133 mmol/L (135-145)
--- NOTE | 2023-06-13 11:07 | MHC.CM.PN ---
PT CLEARED TO DC TODAY, PTS DAUGHTER/HCP DOES NOT WANT HER TO RETURN TO [facility] PT WILL DC HOME WITH RESUMPTION OF [employer] AND NEW [facility] FOR PT/SN CM SPOKE TO PTS DAUGHTERFIDEL VIA T/C [phone] PER DISCUSSION, REFERRAL PLACED TO [facility] FIDEL CONFIRMS THEIR ADDRESS IS [address] [place] [address] DR FRANK ALLISON TASK SENT TO UPDATE ADDRESS FIDEL ALSO REPORTS THE PTS PCP IS TERRE[facility] ON [facility] [place] TASK SENT TO UPDATE PCP WELL PT WILL TRANSPORT HOME [facility] AT [address]30 HOURS
[2023-06-13 11:15] VITALS: BP 101/51; PULSE 59; RESP 20; TEMP 36.3; O2SAT 99
== END 2023-06-13 12:58 | disposition home health service (06) | DRG 280 ==
LOC: HO.ED 16:01 → HO.EDOVER 17:01 → HO.IMC 06-11 16:32
PROVIDERS: Admitting Provider Student in an Organized Health Care Education/Training Program; Emergency Provider Emergency Medicine; PCP Internal Medicine; Visit Provider Student in an Organized Health Care Education/Training Program
DX: I95.3 Hypotension of hemodialysis (principal); G92.8 Other toxic encephalopathy; I21.A1 Myocardial infarction type 2; N18.6 End stage renal disease; I12.0 Hypertensive chronic kidney disease with stage 5 chronic kidney disease or end stage renal disease; I42.9 Cardiomyopathy, unspecified; E87.21 Acute metabolic acidosis; T43.595A Adverse effect of other antipsychotics and neuroleptics, initial encounter; L89.152 Pressure ulcer of sacral region, stage 2; G47.33 Obstructive sleep apnea (adult) (pediatric); Z66 Do not resuscitate; F01.50 Vascular dementia, unspecified severity, without behavioral disturbance, psychotic disturbance, mood disturbance, and anxiety; I48.0 Paroxysmal atrial fibrillation; Z20.822 Contact with and (suspected) exposure to COVID-19; Z99.2 Dependence on renal dialysis; Z79.01 Long term (current) use of anticoagulants; Z79.82 Long term (current) use of aspirin; Z79.899 Other long term (current) drug therapy
CPT/HCPCS: 0241U; 36415; 71045; 80048; 80076; 83605; 83690; 83735; 83880; 84145; 84484; 85025; 85027; 85610; 86850; 86870; 86880; 86900; 86901; 86902; 86905; 86920; 86922; 87040; 90999; 93005; 97161; 99285; J0613; J0692; J0696; P9047

== ENCOUNTER → 2023-06-10 12:23 | Outpatient (BNV) | payer OTHER, SELFPAY | PROVIDERS: Admitting Provider Student in an Organized Health Care Education/Training Program; Emergency Provider Emergency Medicine; Visit Provider Internal Medicine Cardiovascular Disease | DX: I49.3 Ventricular premature depolarization (principal); I44.2 Atrioventricular block, complete | CPT/HCPCS: 93010 ==

== ENCOUNTER → 2023-06-10 16:43 | Outpatient (BNV) | payer OTHER, SELFPAY | PROVIDERS: Admitting Provider Student in an Organized Health Care Education/Training Program; Emergency Provider Emergency Medicine; Visit Provider Internal Medicine Cardiovascular Disease | DX: I21.4 Non-ST elevation (NSTEMI) myocardial infarction (principal); I42.9 Cardiomyopathy, unspecified; N18.6 End stage renal disease; Z99.2 Dependence on renal dialysis | CPT/HCPCS: 99222 ==

== ENCOUNTER → 2023-06-10 16:43 | Outpatient (BNV) | payer OTHER, SELFPAY | PROVIDERS: Admitting Provider Student in an Organized Health Care Education/Training Program; Emergency Provider Emergency Medicine; Visit Provider Student in an Organized Health Care Education/Training Program | DX: E87.21 Acute metabolic acidosis (principal); N18.6 End stage renal disease; Z99.2 Dependence on renal dialysis; R79.89 Other specified abnormal findings of blood chemistry; I95.9 Hypotension, unspecified; I21.4 Non-ST elevation (NSTEMI) myocardial infarction; G92.8 Other toxic encephalopathy; D72.829 Elevated white blood cell count, unspecified | CPT/HCPCS: 99223; 99232; 99233; 99239; G0180 ==

== ENCOUNTER → 2023-06-10 16:43 | Outpatient (BNV) | payer OTHER, SELFPAY | PROVIDERS: Admitting Provider Student in an Organized Health Care Education/Training Program; Emergency Provider Emergency Medicine; Visit Provider Internal Medicine Nephrology | DX: N18.6 End stage renal disease (principal); Z99.2 Dependence on renal dialysis | CPT/HCPCS: 99223 ==